=== PATIENT | male | born 1965 | race Hispanic/Latino ===

== ENCOUNTER 2017-06-25 10:40 | Emergency (ER) | payer OTHER ==
[~2017-06-25 10:40] MED LIST: AMLO5TAB2 PO; ASPI-1197 PO; BACL10TA PO; CYAN10009 PO; DAPA10TA PO; GLIM4TAB3 PO; HYDR-4060 PO; ISOS30TA6 PO; LISI2.5T2 PO; LORA10TA7 PO; LORA1TAB3 PO; MELA3TAB PO; METF500T6 PO; METO25TA6 PO; METO5TAB2 PO; NITR0.4T50 SL; PANT40TA PO; PRAV80TA21 PO
[2017-06-25] MEDS ORDERED: ONDANSETRON HCL 4 MG/2 ML VIAL ONE (11:03)
[2017-06-25] MEDS ORDERED: ORPHENADRINE CITRATE 30 MG/ML ML ONE (11:03)
[2017-06-25] MEDS ORDERED: ASPIRIN 325 MG TABLET ONE (11:30)
[2017-06-25 11:50] LABS: BASOPHILS % (AUTO) 0.7 % (0.0-5.0); EOSINOPHILS % (AUTO) 1.3 % (0.0-8.0); HEMATOCRIT 38.7 % (42-54); LYMPHOCYTES % (AUTO) 24.3 % (21.0-51.0); MEAN CORPUSCULAR HEMOGLOBIN 29.9 pg (27.0-33.0); MEAN CORPUSCULAR HGB CONC 34.3 g/dL (32.0-36.0); MEAN CORPUSCULAR VOLUME 87.3 fL (79-99); MONOCYTES % (AUTO) 4.7 % (3.0-13.0); NUCLEATED RED BLOOD CELLS 0.1 % (0.0-0.19); PLATELET COUNT (AUTO) 217 K/uL (130-400); RED BLOOD CELL COUNT(AUTO) 4.43 MIL/uL (4.50-6.20); RED CELL DISTRIBUTION WIDTH 13.1 % (11.0-15.5); WHITE BLOOD COUNT (AUTO) 6.2 K/uL (4.8-10.8)
[2017-06-25 12:02] LABS: CREATININE 0.9 mg/dL (0.5-1.5); POTASSIUM 4.2 mmol/L (3.5-5.1)
[2017-06-25 12:07] LABS: ALBUMIN 3.4 g/dL (3.5-5.0); BILIRUBIN,TOTAL 0.3 mg/dL (0.2-1.0); TOTAL PROTEIN, SERUM 6.7 g/dL (6.0-8.3)
[2017-06-25 12:41] LABS: PARTIAL THROMBOPLASTIN TIME 23.9 SEC (26.3-35.5); PROTHROMBIN TIME 10.5 SEC (9.6-11.6)
== END 2017-06-25 15:19 | disposition home or self-care (01) ==
LOC: EDH 10:40
DX: R07.89 Other chest pain (principal); M43.6 Torticollis; I10 Essential (primary) hypertension; E11.9 Type 2 diabetes mellitus without complications; Z79.4 Long term (current) use of insulin; Z95.0 Presence of cardiac pacemaker; Z98.890 Other specified postprocedural states
CPT/HCPCS: 36415; 71046; 80053; 84484 ×2; 85025; 85610; 85730; 93005 ×2; 96374; 96375; 99285; J2360; J2405

== ENCOUNTER 2017-10-10 21:02 | Emergency (ER) | payer OTHER ==
[2017-10-10] MEDS ORDERED: LIDOCAINE HCL 2% VISCOUS 15 ML UDCUP ONE (21:33)
[2017-10-10] MEDS ORDERED: ONDANSETRON ODT 4 MG TAB ONE (21:34)
[2017-10-10] MEDS ORDERED: SODIUM CHLORIDE 0.9% 1000ML 1,000 ML IV ONE (21:34)
[2017-10-10] MEDS ORDERED: MAG HYDROX/AL HYDROX/SIMETH ES 30 ML SUSP UDCUP ONE (21:34)
[2017-10-10] MEDS ORDERED: HYDROCODONE/ACETAMINOPHEN 7.5/325 MG 15 ML UDCUP ONE (21:34)
[2017-10-10 21:36] LABS: BASOPHILS % (AUTO) 0.2 % (0.0-5.0); EOSINOPHILS % (AUTO) 0.3 % (0.0-8.0); HEMATOCRIT 45.8 % (42-54); LYMPHOCYTES % (AUTO) 11.4 % (21.0-51.0); MEAN CORPUSCULAR HEMOGLOBIN 29.4 pg (27.0-33.0); MEAN CORPUSCULAR HGB CONC 33.8 g/dL (32.0-36.0); MEAN CORPUSCULAR VOLUME 86.9 fL (79-99); MONOCYTES % (AUTO) 8.4 % (3.0-13.0); NEUTROPHILS % (AUTO) 79.7 % (40.0-77.0); PLATELET COUNT (AUTO) 269 K/uL (130-400); RED BLOOD CELL COUNT(AUTO) 5.27 MIL/uL (4.50-6.20); RED CELL DISTRIBUTION WIDTH 12.9 % (11.0-15.5); WHITE BLOOD COUNT (AUTO) 11.4 K/uL (4.8-10.8)
[2017-10-10 21:49] LABS: POTASSIUM 3.7 mmol/L (3.5-5.1)
[2017-10-10 21:50] LABS: INR 0.96 (0.85-1.15); PARTIAL THROMBOPLASTIN TIME 26.5 SEC (26.3-35.5); PROTHROMBIN TIME 10.1 SEC (9.6-11.6)
[2017-10-10 21:53] LABS: ALBUMIN 3.8 g/dL (3.5-5.0); BILIRUBIN,TOTAL 0.4 mg/dL (0.2-1.0); TOTAL PROTEIN, SERUM 8.1 g/dL (6.0-8.3)
[2017-10-10] MEDS ORDERED: METRONIDAZOLE 500 MG TABLET ONE (22:03)
[2017-10-10] MEDS ORDERED: CEFTRIAXONE SODIUM 1 GM ONE (22:03)
== END 2017-10-10 23:24 | disposition home or self-care (01) ==
LOC: EDH 21:02
DX: K52.9 Noninfective gastroenteritis and colitis, unspecified (principal); K29.70 Gastritis, unspecified, without bleeding; E11.9 Type 2 diabetes mellitus without complications; I10 Essential (primary) hypertension; E78.5 Hyperlipidemia, unspecified; E07.9 Disorder of thyroid, unspecified; I25.810 Atherosclerosis of coronary artery bypass graft(s) without angina pectoris; Z95.1 Presence of aortocoronary bypass graft; Z79.4 Long term (current) use of insulin
CPT/HCPCS: 36415; 80053; 83605; 83690; 84484; 85025; 85610; 85730; 93005; 96361; 96374; 99285; J0696; J7030

== ENCOUNTER 2018-04-25 17:53 | Emergency (ER) | payer OTHER ==
[~2018-04-25 17:53] MED LIST changes: -AMLO5TAB2 PO; +AMLO5TAB7 PO; +METF-444 PO; -METF500T6 PO
[2018-04-25 18:44] LABS: BASOPHILS % (AUTO) 0.4 % (0.0-5.0); EOSINOPHILS % (AUTO) 0.9 % (0.0-8.0); HEMATOCRIT 44.3 % (42-54); LYMPHOCYTES % (AUTO) 31.1 % (21.0-51.0); MEAN CORPUSCULAR HEMOGLOBIN 29.7 pg (27.0-33.0); MEAN CORPUSCULAR HGB CONC 33.9 g/dL (32.0-36.0); MEAN CORPUSCULAR VOLUME 87.7 fL (79-99); MONOCYTES % (AUTO) 6.4 % (3.0-13.0); NEUTROPHILS % (AUTO) 61.2 % (40.0-77.0); NUCLEATED RED BLOOD CELLS 0.1 % (0.0-0.19); PLATELET COUNT (AUTO) 272 K/uL (130-400); RED BLOOD CELL COUNT(AUTO) 5.05 MIL/uL (4.50-6.20); WHITE BLOOD COUNT (AUTO) 7.3 K/uL (4.8-10.8)
[2018-04-25 18:59] LABS: POTASSIUM 4.1 mmol/L (3.5-5.1)
[2018-04-25 19:07] LABS: ALBUMIN 3.5 g/dL (3.5-5.0); BILIRUBIN,TOTAL 0.3 mg/dL (0.2-1.0); TOTAL PROTEIN, SERUM 6.9 g/dL (6.0-8.3)
[2018-04-25] MEDS ORDERED: PROMETHAZINE HCL 25 MG/ML 1ML AMPULE IM ONE (19:10)
[2018-04-25] MEDS ORDERED: DiphenhydrAMINE HCL 50 MG/ML VIAL ONE (19:10)
[2018-04-25] MEDS ORDERED: SODIUM CHLORIDE 0.9% 1000ML 1,000 ML IV ONE (19:11)
[2018-04-25] MEDS ORDERED: LABETALOL HCL 5 MG/ML 20ML VIAL IV ONE (20:11)
[2018-04-25 20:30] LABS: APPEARANCE,URINE Clear (CLEAR); BILIRUBIN,URINE Negative (NEGATIVE); COLOR,URINE Yellow (YELLOW); GLUCOSE, URINE (UA) >=1000 mg/dL (NEGATIVE); KETONES,URINE Negative (NEGATIVE); LEUKOCYTE ESTERASE ,URINE Negative (NEGATIVE); NITRATE,URINE Negative (NEGATIVE); OCCULT BLOOD,URINE Negative (NEGATIVE); PROTEIN,URINE Negative (NEGATIVE); UROBILINOGEN,URINE 0.2 mg/dL (0.2-1.0)
[2018-04-25] MEDS ORDERED: IOHEXOL-350 75 ML VIAL IV ONE (20:35)
[2018-04-25 21:03] LABS: RBC,URINE 0-1 /HPF (0-1); SQUAMOUS EPITHELIAL CELL,UR Rare /HPF (0-2); WBC,URINE 0-1 /HPF (0-1)
[2018-04-25 21:04] LABS: BACTERIA,URINE Rare /HPF (None Seen)
== END 2018-04-26 00:30 | disposition home or self-care (01) ==
LOC: EDH 17:53
DX: K29.70 Gastritis, unspecified, without bleeding (principal); E11.9 Type 2 diabetes mellitus without complications; E07.9 Disorder of thyroid, unspecified; I10 Essential (primary) hypertension; I25.10 Atherosclerotic heart disease of native coronary artery without angina pectoris; Z79.4 Long term (current) use of insulin; Z95.1 Presence of aortocoronary bypass graft
CPT/HCPCS: 36415; 74177; 76705; 80053; 81001; 82150; 83690; 84484; 85025; 93005; 96365; 96366; 96375; 99285; J1200; J2550; J3490; J7030; Q9967

== ENCOUNTER 2019-03-28 11:24 | Observation (INO) | payer OTHER ==
[~2019-03-28] VITALS: Ht 170.2 cm; Wt 95.3 kg
[~2019-03-28 11:24] MED LIST changes: -AMLO5TAB7 PO; +AMLO5TAB9 PO; +CYAN-52 PO; -CYAN10009 PO; -GLIM4TAB3 PO; +GLIM4TAB5 PO; -MELA3TAB PO; +MELA3TAB66 PO
[2019-03-28] MEDS ORDERED: ASPIRIN 325MG EC TAB 325 MG TABLET.DR PO ONE (11:33)
[2019-03-28 11:35] LABS: BASOPHILS % (AUTO) 0.7 % (0.0-5.0); EOSINOPHILS % (AUTO) 1.7 % (0.0-8.0); HEMATOCRIT 44.6 % (42-54); LYMPHOCYTES % (AUTO) 30.8 % (21.0-51.0); MEAN CORPUSCULAR HEMOGLOBIN 29.5 pg (27.0-33.0); MEAN CORPUSCULAR HGB CONC 33.2 g/dL (32.0-36.0); MEAN CORPUSCULAR VOLUME 89.1 fL (79-99); NEUTROPHILS % (AUTO) 59.8 % (40.0-77.0); PLATELET COUNT (AUTO) 251 K/uL (130-400); RED BLOOD CELL COUNT(AUTO) 5.01 MIL/uL (4.50-6.20); RED CELL DISTRIBUTION WIDTH 13.2 % (11.0-15.5); WHITE BLOOD COUNT (AUTO) 6.4 K/uL (4.8-10.8)
[2019-03-28] MEDS ORDERED: NITROGLYCERIN 1GM/1 INCH PACKET TD ONE (11:43)
[2019-03-28 11:44] LABS: POTASSIUM 4.1 mmol/L (3.5-5.1)
[2019-03-28 11:49] LABS: ALBUMIN 3.7 g/dL (3.5-5.0); BILIRUBIN,TOTAL 0.3 mg/dL (0.2-1.0); TOTAL PROTEIN, SERUM 7.3 g/dL (6.0-8.3)
[2019-03-28 11:58] LABS: INR 0.96 (0.85-1.15); PARTIAL THROMBOPLASTIN TIME 25.1 SEC (26.3-35.5); PROTHROMBIN TIME 10.1 SEC (9.6-11.6)
[2019-03-28] MEDS ORDERED: SODIUM CHLORIDE 0.9% 500ML 500 ML IV SCH (17:25)
[2019-03-28] MEDS ORDERED: TICAGRELOR 90 MG TABLET PO SCH (18:45)
[2019-03-28] MEDS ORDERED: TICAGRELOR 90 MG TABLET ONE (20:21)
[2019-03-28 20:24] LABS: CREATINE KINASE, TOTAL 154 U/L (21-232); MYOGLOBIN 32 ng/mL (10-92); TROPONIN I < 0.04 ng/mL (0.00-0.06)
[2019-03-28] MEDS ORDERED: METOPROLOL TARTRATE 25 MG TAB ONE (20:25)
[2019-03-28] MEDS: METOPROLOL TARTRATE 25 MG TAB PO SCH (21:00)
[2019-03-28] MEDS ORDERED: SODIUM CHLORIDE 0.9% 1000ML 1,000 ML IV ONE (21:24)
[2019-03-28] MEDS ORDERED: SODIUM CHLORIDE 0.9% 500ML 500 ML IV ONE (21:25)
[2019-03-29] VITALS (11 sets, daily range): BP systolic 78–164; BP diastolic 64–123
[2019-03-29] MEDS: ISOSORBIDE MONO 30MG TAB SR PO SCH (09:00)
[2019-03-29] MEDS: ASPIRIN 81MG TAB.CHEW PO SCH (09:00)
[2019-03-29] MEDS: METOPROLOL TARTRATE 25 MG TAB PO SCH (09:00)
[2019-03-29] MEDS ORDERED: METOPROLOL TARTRATE 25 MG TAB ONE (11:03)
[2019-03-29 13:03] LABS: HEMATOCRIT 45.6 % (42-54); MEAN CORPUSCULAR HEMOGLOBIN 29.4 pg (27.0-33.0); MEAN CORPUSCULAR HGB CONC 33.2 g/dL (32.0-36.0); MEAN CORPUSCULAR VOLUME 88.7 fL (79-99); PLATELET COUNT (AUTO) 234 K/uL (130-400); RED BLOOD CELL COUNT(AUTO) 5.14 MIL/uL (4.50-6.20); RED CELL DISTRIBUTION WIDTH 12.9 % (11.0-15.5); WHITE BLOOD COUNT (AUTO) 5.6 K/uL (4.8-10.8)
[2019-03-29 13:15] LABS: CREATININE 0.9 mg/dL (0.5-1.5); POTASSIUM 4.3 mmol/L (3.5-5.1)
[2019-03-29 13:17] LABS: INR 0.98 (0.85-1.15); PROTHROMBIN TIME 10.3 SEC (9.6-11.6)
--- NOTE | 2019-03-29 14:02 | NUR ---
DCP: HOME Sw met with pt who lives with his Vira [place] [phone]. Pt reports he is independent of all ADLs, no DME or in home care services. PCP is Elvis Hein and he uses [facility]. Pt denies dc needs, plan is home at la Addendum: 03/29/19 at 1404 by SADIA DEL CASTILLO SS Amended: Links added.
[2019-03-29] MEDS ORDERED: MAGNESIUM 2GM PREMIX 50ML 50 ML IV PRN (17:00)
[2019-03-29] MEDS ORDERED: POTASSIUM CHLORIDE 10% ELIXIR 20 MEQ/15 ML UDCUP PO PRN (17:00)
[2019-03-29] MEDS ORDERED: POTASSIUM CHLORIDE 20MEQ/100ML 100 ML IV PRN (17:00)
[2019-03-29] MEDS ORDERED: GLUCAGON 1MG KIT 1 MG ML IM PRN (17:00)
[2019-03-29] MEDS ORDERED: DEXTROSE 50%-WATER 50 ML DISP.SYRIN IV PRN (17:00)
[2019-03-29] MEDS ORDERED: IPRATROPIUM 0.5 MG/2.5 ML INH IH PRN (17:00)
[2019-03-29] MEDS ORDERED: POTASSIUM CHLORIDE 20 MEQ ERTAB PO PRN (17:00)
[2019-03-29] MEDS ORDERED: IOHEXOL 350 MG/ML 100ML INFUS..BTL IV ONE (18:20)
[2019-03-29] MEDS ORDERED: LIDOCAINE HCL 2% 20ML ONE (18:20)
[2019-03-29] MEDS ORDERED: HEPARIN SODIUM 1000UNIT/ML 10ML VIAL ONE (18:20)
[2019-03-29] MEDS ORDERED: NITROGLYCERIN 5 MG/ML 10 ML VIAL IV ONE (18:20)
[2019-03-29] MEDS ORDERED: IOHEXOL-350 50ML VIAL IV ONE (18:20)
[2019-03-29] MEDS ORDERED: MIDAZOLAM HCL 1 MG/ML 2ML VIAL ONE (18:30)
[2019-03-29] MEDS ORDERED: FENTANYL CITRATE PF 50 MCG/1 ML 2ML VIAL ONE (18:31)
[2019-03-29] MEDS ORDERED: HYDRALAZINE HCL 20 MG/ML VIAL ONE (18:39)
[2019-03-29] MEDS ORDERED: TICAGRELOR 90 MG TABLET ONE (18:47)
[2019-03-29] MEDS ORDERED: ASPIRIN 325MG EC TAB 325 MG TABLET.DR PO ONE (19:36)
--- NOTE | 2019-03-29 20:00 | NUR ---
ARRIVED ON UNIT PATIENT ON 2L OF SATS 99%, ON BEDREST X3H PER ORDERS. DENIES CHEST PAIN OR SOB. L GROIN SOFT, NO ACTIVE BLEEDING,NO HEMATOMA. BILATERAL PEDAL PULSES PALPABLE. BLE COOL TO TOUCH. AT BEDSIDE. WILL CONTINUE TO MONITOR
[2019-03-29] MEDS: TICAGRELOR 90 MG TABLET PO SCH (21:00)
[2019-03-29] MEDS: INSULIN HUMULIN R 100 UNIT/ML 3ML SQ SCH (21:00)
[2019-03-29] MEDS: RANOLAZINE 500 MG TAB.SR.12H PO SCH (21:13)
[2019-03-29] MEDS: FAMOTIDINE 20MG TAB 20 MG TAB PO SCH (21:13)
--- NOTE | 2019-03-29 22:45 | NUR ---
BEDREST DONE SAT PATIENT UP TO EAT. GROIN SOFT, NO BLEEDING, DRESSING CDI. PEDAL PULSES PALPABLE.
--- NOTE | 2019-03-29 23:15 | NUR ---
PATIENT AMBULATED WITH STEADY GATE, L GROIN SOFT, NO BLEEDING, DRESSING CDI.
[2019-03-29] MEDS ORDERED: LEVO50TA11 PO (23:24)
[2019-03-29] MEDS ORDERED: PRAZ1CAP5 PO (23:24)
[2019-03-29] MEDS ORDERED: MONT10TA24 PO (23:24)
[2019-03-29] MEDS ORDERED: TAMS-1 PO (23:24)
[2019-03-29] MEDS ORDERED: MAGN400T53 PO (23:24)
[2019-03-29] MEDS ORDERED: TRAZ-185 PO (23:24)
[2019-03-29] MEDS ORDERED: AEC81 PO (23:28)
[2019-03-30 04:03] LABS: HEMATOCRIT 43.2 % (42-54); MEAN CORPUSCULAR HEMOGLOBIN 29.5 pg (27.0-33.0); MEAN CORPUSCULAR HGB CONC 33.9 g/dL (32.0-36.0); MEAN CORPUSCULAR VOLUME 86.8 fL (79-99); PLATELET COUNT (AUTO) 268 K/uL (130-400); RED BLOOD CELL COUNT(AUTO) 4.97 MIL/uL (4.50-6.20); WHITE BLOOD COUNT (AUTO) 7.7 K/uL (4.8-10.8)
[2019-03-30 04:30] LABS: CARBON DIOXIDE 28 mmol/L (21-32); CHLORIDE 99 mmol/L (101-111); CHOLESTEROL 213 mg/dL (<200); CREATINE KINASE, TOTAL 96 U/L (21-232); CREATININE 1.1 mg/dL (0.5-1.5); GLOMERULAR FILTR. RATE CALC 74 mL/min (>60); GLUCOSE,RANDOM 215 mg/dL (70-105); HDL CHOLESTEROL 30 mg/dL (29-71); LDL DIRECT 163 mg/dL (0-99); MYOGLOBIN 52 ng/mL (10-92); POTASSIUM 3.8 mmol/L (3.5-5.1); SODIUM SERUM 133 mmol/L (136-145); THYROID STIMULATING HORMONE 3.28 uIU/mL (0.36-3.74); TRIGLYCERIDES 222 mg/dL (30-200); TROPONIN I < 0.04 ng/mL (0.00-0.06); UREA NITROGEN, BLOOD 12 mg/dL (7-18)
[2019-03-30 04:33] LABS: HEMOGLOBIN A1C 7.9 % (4.0-6.0)
[2019-03-30 04:43] VITALS: BP 127/88
[2019-03-30] MEDS: INSULIN HUMULIN R 100 UNIT/ML 3ML SQ SCH (06:16)
[2019-03-30 07:41] VITALS: BP 152/69
[2019-03-30] MEDS: RANOLAZINE 500 MG TAB.SR.12H PO SCH ×2 (09:00→09:58)
[2019-03-30] MEDS: ISOSORBIDE MONO 30MG TAB SR PO SCH (09:00)
[2019-03-30] MEDS ORDERED: PNEUMOCOCCAL VACCINE POLYVALENT 0.5 ML/VIAL [PPV] IM SCH (09:00)
[2019-03-30] MEDS: METOPROLOL TARTRATE 25 MG TAB PO SCH (09:58)
[2019-03-30] MEDS: TICAGRELOR 90 MG TABLET PO SCH (09:58)
[2019-03-30] MEDS: FAMOTIDINE 20MG TAB 20 MG TAB PO SCH (09:58)
[2019-03-30] MEDS: ASPIRIN 81MG TAB.CHEW PO SCH (09:58)
[2019-03-30] MEDS ORDERED: TICA90TA PO (10:05)
[2019-03-30] MEDS ORDERED: ISOS30TA6 PO (21:26)
[2019-03-30] MEDS ORDERED: METO50TA18 PO (21:26)
== END 2019-03-30 11:53 | disposition home or self-care (01) ==
LOC: EDH 11:24 → EDHIP 12:30 → 2AH 03-29 17:54
PROVIDERS: ADMIT Internal Medicine Critical Care Medicine; ATTEND Internal Medicine Critical Care Medicine
DX: I25.110 Atherosclerotic heart disease of native coronary artery with unstable angina pectoris (principal); E03.9 Hypothyroidism, unspecified; E11.9 Type 2 diabetes mellitus without complications; E78.2 Mixed hyperlipidemia; I10 Essential (primary) hypertension; J44.9 Chronic obstructive pulmonary disease, unspecified; N40.0 Benign prostatic hyperplasia without lower urinary tract symptoms; E66.9 Obesity, unspecified; F41.9 Anxiety disorder, unspecified; Z79.02 Long term (current) use of antithrombotics/antiplatelets; Z79.82 Long term (current) use of aspirin; Z79.84 Long term (current) use of oral hypoglycemic drugs; Z79.890 Hormone replacement therapy; Z79.899 Other long term (current) drug therapy; Z95.1 Presence of aortocoronary bypass graft; Z98.61 Coronary angioplasty status; Z82.49 Family history of ischemic heart disease and other diseases of the circulatory system; Z83.3 Family history of diabetes mellitus; Z79.01 Long term (current) use of anticoagulants
CPT/HCPCS: 36415 ×3; 71045; 80048 ×2; 80053; 80061 ×2; 82550 ×4; 82948 ×7; 83036; 83690; 83735; 83874 ×2; 84443; 84484 ×4; 85025; 85027 ×2; 85610 ×2; 85730; 93005 ×4; 93459; 94660 ×2; 94664; 96365; 96366; 99284; C1725; C1760; C1769; C1874; C1887; C1894 ×2; C9600; G0378 ×39; J0360; J1644 ×2; J2250; J3010; J3475; J3490 ×2; J7030; J7040; Q9965 ×2; Q9967 ×2; 99156; 99157

== ENCOUNTER 2019-03-30 15:37 | Observation (INO) | payer OTHER ==
[~2019-03-30] VITALS: Ht 170.2 cm; Wt 95.3 kg
[~2019-03-30 15:37] MED LIST changes: +AEC81 PO; -AMLO5TAB9 PO; -ASPI-1197 PO; -CYAN-52 PO; -DAPA10TA PO; -GLIM4TAB5 PO; +LEVO50TA11 PO; -LORA10TA7 PO; +MAGN400T53 PO; +MONT10TA24 PO; +PRAZ1CAP5 PO; +TAMS-1 PO; +TICA90TA PO; +TRAZ-185 PO
[2019-03-30 15:51] LABS: BASOPHILS % (AUTO) 0.4 % (0.0-5.0); EOSINOPHILS % (AUTO) 0.4 % (0.0-8.0); HEMATOCRIT 47.7 % (42-54); LYMPHOCYTES % (AUTO) 33.4 % (21.0-51.0); MEAN CORPUSCULAR HEMOGLOBIN 29.5 pg (27.0-33.0); MEAN CORPUSCULAR HGB CONC 33.6 g/dL (32.0-36.0); MEAN CORPUSCULAR VOLUME 87.9 fL (79-99); MONOCYTES % (AUTO) 6.8 % (3.0-13.0); PLATELET COUNT (AUTO) 250 K/uL (130-400); RED BLOOD CELL COUNT(AUTO) 5.43 MIL/uL (4.50-6.20); RED CELL DISTRIBUTION WIDTH 12.7 % (11.0-15.5); WHITE BLOOD COUNT (AUTO) 6.5 K/uL (4.8-10.8)
[2019-03-30 15:58] LABS: CREATININE 1.2 mg/dL (0.5-1.5); POTASSIUM 3.8 mmol/L (3.5-5.1)
[2019-03-30 16:04] LABS: ALBUMIN 3.9 g/dL (3.5-5.0); BILIRUBIN,TOTAL 0.5 mg/dL (0.2-1.0); TOTAL PROTEIN, SERUM 7.8 g/dL (6.0-8.3)
[2019-03-30 16:07] LABS: INR 1.02 (0.85-1.15); PARTIAL THROMBOPLASTIN TIME 25.9 SEC (26.3-35.5); PROTHROMBIN TIME 10.7 SEC (9.6-11.6)
[2019-03-30] MEDS ORDERED: ONDANSETRON HCL 4 MG/2 ML VIAL ONE (18:07)
[2019-03-30] MEDS ORDERED: ONDANSETRON HCL 4 MG/2 ML VIAL IVP PRN (18:30)
[2019-03-30] MEDS ORDERED: ACETAMINOPHEN 325 MG TAB PO PRN (18:30)
[2019-03-30 20:11] VITALS: BP 168/94
[2019-03-30] MEDS ORDERED: METO50TA18 PO (21:26)
[2019-03-30] MEDS ORDERED: ISOS30TA6 PO (21:26)
[2019-03-30] MEDS ORDERED: TRAZODONE HCL 50 MG TAB PO PRN (21:30)
[2019-03-30] MEDS ORDERED: BACLOFEN 10 MG TABLET PO PRN (21:30)
[2019-03-31] VITALS (8 sets, daily range): BP systolic 128–158; BP diastolic 58–89
[2019-03-31] MEDS: LEVOTHYROXINE 50 MCG TABLET PO SCH (05:38)
[2019-03-31] MEDS: ASPIRIN 81MG TAB.CHEW PO SCH (08:48)
[2019-03-31] MEDS: TICAGRELOR 90 MG TABLET PO SCH ×2 (08:49→20:01)
[2019-03-31] MEDS: METOPROLOL TARTRATE 50 MG TAB PO SCH ×2 (08:49→20:01)
[2019-03-31] MEDS: TAMSULOSIN HCL 0.4 MG CAP.ER.24H PO SCH (08:49)
[2019-03-31] MEDS: MONTELUKAST SODIUM 10 MG TAB PO SCH (08:49)
[2019-03-31] MEDS ORDERED: ISOSORBIDE MONO 30MG TAB SR PO SCH (09:00)
[2019-03-31] MEDS ORDERED: LISINOPRIL 5 MG TABLET PO SCH (09:00)
[2019-03-31] MEDS ORDERED: DEXTROSE 50%-WATER 50 ML DISP.SYRIN IV PRN (13:30)
[2019-03-31] MEDS ORDERED: GLUCAGON 1MG KIT 1 MG ML IM PRN (13:30)
--- NOTE | 2019-03-31 15:05 | NUR ---
INITIAL: Met with pt and spouse this afternoon to discuss dcp. Pt mentions that he lives w his spouse/dtr and grandchildren. He mentions that he is independent w ambulation and ADLs. He was still driving prior to admission. He owns a cane and cpap. Per spouse/pt he was having a difficult time purchasing Brilinta dt cost. Provided him w a coupon. Pt mentions that he feels safe and comfortable to return home at vt. CM to continue to follow and wait for MD recommendations. Addendum: 03/31/19 at 1507 by DACIA RIVAS Amended: Links added.
--- NOTE | 2019-03-31 15:55 | NUR ---
SPOKE TO DR. RODRIGO MOYER REGARDING CONSULT. PER DR. MOYER, HE NEVER SPOKE TO ANYONE REGARDING THE CONSULT. REMINDED DR. MOYER, ER PHYSICIAN SPOKE TO HIM REGARDING THE CONSULT. DR. MOYER STATED IS AWARE OF THE PATIENT BECAUSE HE DISCHARGED HIM YESTERDAY BUT STATED HE WAS NOT CONSULTED JUST NOTIFIED THAT THE PATIENT HAD RETURNED. PER DR. MOYER, HE WILL NOT SEE THE PATIENT TODAY DUE TO OTHER PROCEDURES THAT HE NEEDS TO ATTEND TOO. IF PATIENT HAS NOT HAD ANY DYSRHYTHMIAS THEN THE PRIMARY PHYSICIAN WOULD NEED TO DETERMINE TO DISCHARGE OR KEEP THE PATIENT.
--- NOTE | 2019-03-31 16:05 | NUR ---
NOTIFIED SARAN ORTA REGARDING DR. MOYER WILL NOT SEE THE PATIENT. PER FLORIAN, WILL NOTIFY DR. PINEDA. NO FURTHER ORDERS AT THIS TIME.
[2019-03-31] MEDS: INSULIN HUMULIN R 100 UNIT/ML 3ML SQ SCH ×2 (17:41→20:50)
[2019-03-31] MEDS: SIMVASTATIN 10 MG TABLET PO SCH (20:01)
[2019-04-01] VITALS (11 sets, daily range): BP systolic 100–159; BP diastolic 49–100
[2019-04-01 04:57] LABS: HEMATOCRIT 43.5 % (42-54); MEAN CORPUSCULAR HEMOGLOBIN 29.4 pg (27.0-33.0); MEAN CORPUSCULAR HGB CONC 33.5 g/dL (32.0-36.0); MEAN CORPUSCULAR VOLUME 87.9 fL (79-99); NUCLEATED RED BLOOD CELLS 0.1 % (0.0-0.19); PLATELET COUNT (AUTO) 250 K/uL (130-400); RED BLOOD CELL COUNT(AUTO) 4.95 MIL/uL (4.50-6.20); RED CELL DISTRIBUTION WIDTH 12.7 % (11.0-15.5); WHITE BLOOD COUNT (AUTO) 7.9 K/uL (4.8-10.8)
[2019-04-01 05:05] LABS: CREATININE 1.1 mg/dL (0.5-1.5); POTASSIUM 3.6 mmol/L (3.5-5.1)
[2019-04-01] MEDS: INSULIN HUMULIN R 100 UNIT/ML 3ML SQ SCH ×4 (05:40→21:08)
[2019-04-01] MEDS: LEVOTHYROXINE 50 MCG TABLET PO SCH (05:52)
[2019-04-01] MEDS: MONTELUKAST SODIUM 10 MG TAB PO SCH (12:05)
[2019-04-01] MEDS: ASPIRIN 81MG TAB.CHEW PO SCH (12:05)
[2019-04-01] MEDS: TICAGRELOR 90 MG TABLET PO SCH ×2 (12:05→21:02)
[2019-04-01] MEDS: TAMSULOSIN HCL 0.4 MG CAP.ER.24H PO SCH (12:06)
[2019-04-01] MEDS: METOPROLOL TARTRATE 50 MG TAB PO SCH ×2 (12:06→21:02)
--- NOTE | 2019-04-01 13:01 | NUR ---
PLAN CASE DISCUSSED WITH DR. Ilana FREGOSO AND CLEMENT RODRIGUEZ, [place]. IF PATIENT DISCHARGING HOME TODAY, OKAY TO ORDER CARDIAC WORK UP AN OUTPATIENT. PER CLEMENT, WILL CLEAR PATIENT FOR DC IF PATIENT ABLE TO AMBULATE WITHOUT NEED FOR O2. ORDERS ENTERED AND CASE DISCUSSED WITH PATRICE VERMA. CD
[2019-04-01] MEDS ORDERED: LISINOPRIL 5 MG TABLET PO SCH (21:00)
[2019-04-01] MEDS: SIMVASTATIN 10 MG TABLET PO SCH (21:02)
[2019-04-02] VITALS (7 sets, daily range): BP systolic 104–151; BP diastolic 64–76
[2019-04-02 04:13] LABS: CREATININE 1.1 mg/dL (0.5-1.5); MAGNESIUM 1.8 mg/dL (1.80-2.40)
[2019-04-02] MEDS: INSULIN HUMULIN R 100 UNIT/ML 3ML SQ SCH ×3 (07:27→17:18)
[2019-04-02] MEDS: LEVOTHYROXINE 50 MCG TABLET PO SCH (07:35)
--- NOTE | 2019-04-02 07:48 | NUR ---
OFF UNIT FOR STRESS TEST
[2019-04-02] MEDS ORDERED: REGADENOSON 0.4 MG/5 ML PF SYG IVP SCH (08:15)
--- NOTE | 2019-04-02 09:18 | NUR ---
BACK IN ROOM FROM STRESS TEST
--- NOTE | 2019-04-02 09:20 | NUR ---
Has bipap uses at night Addendum: 04/02/19 at 1534 by AMY MYERS RN RN Amended: Links added.
[2019-04-02] MEDS: TAMSULOSIN HCL 0.4 MG CAP.ER.24H PO SCH (09:24)
[2019-04-02] MEDS: ASPIRIN 81MG TAB.CHEW PO SCH (09:24)
[2019-04-02] MEDS: METOPROLOL TARTRATE 50 MG TAB PO SCH (09:24)
[2019-04-02] MEDS: MONTELUKAST SODIUM 10 MG TAB PO SCH (09:24)
[2019-04-02] MEDS: TICAGRELOR 90 MG TABLET PO SCH (09:25)
--- NOTE | 2019-04-02 11:00 | NUR ---
CLEMENT RODRIGUEZ ROUNDED ON PATIENT ORDERS RECIEVED FOR CT ANGIO CHEST PE AND US VEINOUS DOPPLER LOWER EXTREMITIES . ORDERS PLACED.
--- NOTE | 2019-04-02 12:30 | NUR ---
VEINOUS DOPPLER COMPLETED RESULTS NORMAL VEINOUS FLOW
[2019-04-02] MEDS ORDERED: IOHEXOL 350 MG/ML 100ML INFUS..BTL IV ONE (14:53)
--- NOTE | 2019-04-02 15:20 | NUR ---
CONSENT SIGNED FOR CT SCAN PATIENT TAKING VIA WHEELCHAIR FOR CT SCAN.
--- NOTE | 2019-04-02 15:26 | NUR ---
Patient stutters and has delays in completing words Addendum: 04/02/19 at 1534 by AMY MYERS RN RN Amended: Links added.
--- NOTE | 2019-04-02 15:39 | NUR ---
PATIENT BACK IN ROOM FROM CT SCAN
--- NOTE | 2019-04-02 17:50 | NUR ---
CALLED CLEMENT RODRIGUEZ WITH RESULTS OF TERA SCAN , CHEST CT AND VEINOUS DOPPLER , SHE SAID SHE WILL RECONCILE THE MEDICATIONS FOR DISCHARGE SOON SHE CAN GET TO A COMPUTER. PATIENT INFORMED OF PENDING DISCHARGE.
[2019-04-02] MEDS ORDERED: METO50 PO (18:53)
[2019-04-02] MEDS ORDERED: LISI-617 PO (18:53)
--- NOTE | 2019-04-02 19:17 | NUR ---
Patient and given discharge instructions and verbalized understanding , monitor unit call and telemetry unit d/c , iv removed with catheter intact and pressure held till bleeding stopped and than site dressed with pressure dressing. reviewed follow-up appointment that patient will call in morning to schedule, reviewed change in medications and medications to continue , no questions or concerns at this time , patient taking via wheelchair to lobby where is waiting to take him home.
== END 2019-04-02 19:10 | disposition home or self-care (01) ==
LOC: EDH 15:37 → EDHIP 17:37 → 3BH 20:11 → 4DH 04-01 19:11
PROVIDERS: ADMIT Internal Medicine Critical Care Medicine; ATTEND Internal Medicine Critical Care Medicine
DX: R55 Syncope and collapse (principal); R00.2 Palpitations; I25.10 Atherosclerotic heart disease of native coronary artery without angina pectoris; E78.5 Hyperlipidemia, unspecified; I10 Essential (primary) hypertension; E03.9 Hypothyroidism, unspecified; E11.9 Type 2 diabetes mellitus without complications; F41.9 Anxiety disorder, unspecified; R94.31 Abnormal electrocardiogram [ECG] [EKG]; G47.33 Obstructive sleep apnea (adult) (pediatric); E66.9 Obesity, unspecified; J44.9 Chronic obstructive pulmonary disease, unspecified; Z95.1 Presence of aortocoronary bypass graft; N40.0 Benign prostatic hyperplasia without lower urinary tract symptoms; Z99.89 Dependence on other enabling machines and devices; Z79.82 Long term (current) use of aspirin; Z79.890 Hormone replacement therapy; Z79.4 Long term (current) use of insulin; Z79.02 Long term (current) use of antithrombotics/antiplatelets; Z79.899 Other long term (current) drug therapy; Z88.8 Allergy status to other drugs, medicaments and biological substances; Z68.32 Body mass index [BMI] 32.0-32.9, adult
CPT/HCPCS: 36415 ×3; 71045; 71275; 78452; 80048 ×2; 80053; 82948 ×11; 83735 ×2; 84484 ×3; 85025; 85027; 85610; 85730; 93005 ×2; 93017; 93306; 93970; 94760; 96372 ×3; 99284; A9500 ×2; G0378 ×71; J1815 ×6; J2405; J2785; Q9967; 96374

== ENCOUNTER 2020-11-28 16:34 | Observation (INO) | payer OTHER ==
[~2020-11-28] VITALS: Ht 170.2 cm; Wt 85.6 kg
[~2020-11-28 16:34] MED LIST changes: -HYDR-4060 PO; -ISOS30TA6 PO; +ISOS30TA92 PO; +LISI-809 PO; -LISI2.5T2 PO; -LORA1TAB3 PO; -MELA3TAB66 PO; -METO25TA6 PO; +METO50 PO; -METO5TAB2 PO; -MONT10TA24 PO; +MONT10TA32 PO; -NITR0.4T50 SL
[2020-11-28 17:13] VITALS: BP 173/69
[2020-11-28 18:44] LABS: BASOPHILS % (AUTO) 0.7 % (0.0-5.0); EOSINOPHILS % (AUTO) 2.7 % (0.0-8.0); HEMATOCRIT 42.6 % (42-54); LYMPHOCYTES % (AUTO) 27.5 % (21.0-51.0); MEAN CORPUSCULAR HEMOGLOBIN 29.3 pg (27.0-33.0); MEAN CORPUSCULAR HGB CONC 32.6 g/dL (32.0-36.0); MEAN CORPUSCULAR VOLUME 89.9 fL (79-99); MONOCYTES % (AUTO) 6.8 % (3.0-13.0); NEUTROPHILS % (AUTO) 61.9 % (40.0-77.0); PLATELET COUNT (AUTO) 260 K/uL (130-400); RED BLOOD CELL COUNT(AUTO) 4.74 MIL/uL (4.50-6.20); RED CELL DISTRIBUTION WIDTH 12.9 % (11.0-15.5); WHITE BLOOD COUNT (AUTO) 7.5 K/uL (4.8-10.8)
[2020-11-28 18:48] LABS: POTASSIUM 3.8 mmol/L (3.5-5.1)
[2020-11-28] MEDS ORDERED: NITROGLYCERIN 1GM OINT 1 INCH/1GM TD ONE (18:49)
[2020-11-28 18:52] LABS: PROTHROMBIN TIME 10.9 SEC (9.6-11.6)
[2020-11-28 18:53] LABS: ALBUMIN 3.6 g/dL (3.5-5.0); BILIRUBIN,TOTAL 0.3 mg/dL (0.2-1.0); MAGNESIUM 1.5 mg/dL (1.80-2.40); TOTAL PROTEIN, SERUM 7.2 g/dL (6.0-8.3)
[2020-11-28] MEDS ORDERED: MAGNESIUM OXIDE 400 MG TABLET PO SCH (19:00)
[2020-11-28 19:15] LABS: B-TYPE NATRIURETIC PEPTIDE 61 pg/mL (0-100)
[2020-11-28 19:47] LABS: ERYTHROCYTE SEDIMENTATION RATE 5 MM/HR (0-20)
[2020-11-28] MEDS ORDERED: NITROGLYCERIN 0.4 MG SL TAB SL PRN (20:30)
[2020-11-28] MEDS ORDERED: ACETAMINOPHEN 325 MG TAB PO PRN (20:30)
[2020-11-28] MEDS ORDERED: ONDANSETRON 4MG INJ IV PRN (20:30)
[2020-11-28] MEDS ORDERED: 0.9%NACL 1000ML 1,000 ML IV SCH (20:30)
[2020-11-28] MEDS ORDERED: LACTULOSE 20 GM/30 ML UDCUP PO PRN (20:30)
[2020-11-28 20:54] LABS: AMPHET/METH SCREEN,URINE NEGATIVE (NEGATIVE); BARBITURATE SCREEN, URINE NEGATIVE (NEGATIVE); BENZODIAZEPINES SCREEN,URINE NEGATIVE (NEGATIVE); CANNABINOID SCREEN,URINE NEGATIVE (NEGATIVE); COCAINE SCREEN,URINE NEGATIVE (NEGATIVE); OPIATE SCREEN,URINE NEGATIVE (NEGATIVE); PHENCYCLIDINE SCREEN,URINE NEGATIVE (NEGATIVE)
[2020-11-28] MEDS: INSULIN HUMULIN R 100 UNIT/ML 3ML SQ SCH (21:00)
[2020-11-28 21:43] LABS: CHOLESTEROL 179 mg/dL (<200); CREATINE KINASE, TOTAL 126 U/L (21-232); HDL CHOLESTEROL 43 mg/dL (29-71); LDL DIRECT 109 mg/dL (0-99); MYOGLOBIN 27 ng/mL (10-92); TRIGLYCERIDES 177 mg/dL (30-200); TROPONIN I < 0.04 ng/mL (0.00-0.06)
[2020-11-28] MEDS: FAMOTIDINE 20MG TAB PO SCH (22:11)
[2020-11-28 22:52] VITALS: BP 173/79
[2020-11-28 23:56] VITALS: BP 163/71
[2020-11-29] VITALS (16 sets, daily range): BP systolic 130–176; BP diastolic 61–79
[2020-11-29] MEDS ORDERED: SIMV40TA59 PO (00:31)
[2020-11-29] MEDS ORDERED: METO25TA6 PO (00:32)
[2020-11-29] MEDS ORDERED: SERT-439 PO (00:34)
[2020-11-29] MEDS ORDERED: NITR0.4T50 SL (00:37)
[2020-11-29] MEDS ORDERED: BUSP15TA3 PO (00:38)
[2020-11-29] MEDS ORDERED: HYDR-4060 PO (00:43)
[2020-11-29] MEDS ORDERED: HYDRALAZINE 20MG/ML VIAL IV PRN (00:45)
[2020-11-29] MEDS ORDERED: HYDRALAZINE 20MG/ML VIAL ONE (00:47)
[2020-11-29 06:40] LABS: BASOPHILS % (AUTO) 0.5 % (0.0-5.0); EOSINOPHILS % (AUTO) 2.5 % (0.0-8.0); HEMATOCRIT 40.2 % (42-54); MEAN CORPUSCULAR HEMOGLOBIN 29.4 pg (27.0-33.0); MEAN CORPUSCULAR HGB CONC 33.3 g/dL (32.0-36.0); MEAN CORPUSCULAR VOLUME 88.2 fL (79-99); MONOCYTES % (AUTO) 7.1 % (3.0-13.0); NEUTROPHILS % (AUTO) 61.5 % (40.0-77.0); PLATELET COUNT (AUTO) 233 K/uL (130-400); RED BLOOD CELL COUNT(AUTO) 4.56 MIL/uL (4.50-6.20); RED CELL DISTRIBUTION WIDTH 13.1 % (11.0-15.5); WHITE BLOOD COUNT (AUTO) 7.6 K/uL (4.8-10.8)
[2020-11-29 06:49] LABS: HEMOGLOBIN A1C 8.9 % (4.0-6.0)
[2020-11-29 06:54] LABS: % IRON SATURATION 28.9 % (30-44)
[2020-11-29 07:00] LABS: CARBON DIOXIDE 30 mmol/L (21-32); CHLORIDE 105 mmol/L (101-111); CREATINE KINASE, TOTAL 94 U/L (21-232); CREATININE 0.7 mg/dL (0.5-1.5); GLOMERULAR FILTR. RATE CALC 124 mL/min (>60); GLUCOSE,RANDOM 89 mg/dL (70-105); MYOGLOBIN 38 ng/mL (10-92); PHOSPHORUS 3.8 mg/dL (2.5-4.9); POTASSIUM 3.4 mmol/L (3.5-5.1); SODIUM SERUM 141 mmol/L (136-145); THYROID STIMULATING HORMONE 2.67 uIU/mL (0.36-3.74); TROPONIN I < 0.04 ng/mL (0.00-0.06); UREA NITROGEN, BLOOD 12 mg/dL (7-18)
[2020-11-29] MEDS: INSULIN HUMULIN R 100 UNIT/ML 3ML SQ SCH ×4 (07:30→19:46)
[2020-11-29] MEDS: FAMOTIDINE 20MG TAB PO SCH ×2 (09:01→21:42)
[2020-11-29] MEDS: ASPIRIN 81MG CHEW TAB PO SCH (09:01)
[2020-11-29] MEDS: ENOXAPARIN SODIUM 40 MG/0.4 ML SYRINGE SQ SCH (09:03)
[2020-11-29] MEDS ORDERED: DEXTROSE 50%-WATER 50 ML DISP.SYRIN IV PRN (10:45)
[2020-11-29] MEDS ORDERED: POTASSIUM CHLORIDE 20MEQ/100ML 100 ML IV PRN ×2 (10:45)
[2020-11-29] MEDS ORDERED: MAGNESIUM 2GM PREMIX 50ML 50 ML IV PRN (10:45)
[2020-11-29] MEDS ORDERED: KCL 20 MEQ ERTAB PO PRN (10:45)
[2020-11-29] MEDS ORDERED: LIDOCAINE HCL-MPF 1% 2ML VIAL IV PRN ×2 (10:45)
[2020-11-29] MEDS ORDERED: GLUCAGON 1MG KIT 1 MG ML IM PRN (10:45)
[2020-11-29] MEDS ORDERED: POTASSIUM CHLORIDE 10% ELIXIR 20 MEQ/15 ML UDCUP PO PRN (10:45)
[2020-11-29] MEDS: SOLU-MEDROL 40MG VIAL IVP SCH (11:09)
[2020-11-29] MEDS: KETOROLAC 15MG/ML VIAL (15MG/ML) IV SCH (11:09)
[2020-11-29 12:48] LABS: CREATINE KINASE, TOTAL 97 U/L (21-232); MYOGLOBIN 37 ng/mL (10-92); TROPONIN I < 0.04 ng/mL (0.00-0.06)
[2020-11-30] VITALS (7 sets, daily range): BP systolic 124–173; BP diastolic 63–74
[2020-11-30 07:13] LABS: HEMATOCRIT 40.2 % (42-54); MEAN CORPUSCULAR HEMOGLOBIN 29.3 pg (27.0-33.0); MEAN CORPUSCULAR HGB CONC 32.8 g/dL (32.0-36.0); MEAN CORPUSCULAR VOLUME 89.3 fL (79-99); RED BLOOD CELL COUNT(AUTO) 4.5 MIL/uL (4.50-6.20); RED CELL DISTRIBUTION WIDTH 13.1 % (11.0-15.5); WHITE BLOOD COUNT (AUTO) 16.1 K/uL (4.8-10.8)
[2020-11-30] MEDS: INSULIN HUMULIN R 100 UNIT/ML 3ML SQ SCH ×4 (07:30→21:42)
[2020-11-30 07:32] LABS: CREATININE 0.8 mg/dL (0.5-1.5); CRP QUANTITATIVE 1.3 mg/L (0.00-9.0); POTASSIUM 4.2 mmol/L (3.5-5.1)
[2020-11-30] MEDS: KETOROLAC 15MG/ML VIAL (15MG/ML) IV SCH (10:11)
[2020-11-30] MEDS: SOLU-MEDROL 40MG VIAL IVP SCH (10:11)
[2020-11-30] MEDS: ASPIRIN 81MG CHEW TAB PO SCH (10:18)
[2020-11-30] MEDS: FAMOTIDINE 20MG TAB PO SCH ×2 (10:18→20:32)
[2020-11-30] MEDS: ENOXAPARIN SODIUM 40 MG/0.4 ML SYRINGE SQ SCH (10:19)
[2020-11-30] MEDS: SIMVASTATIN 20 MG TABLET PO SCH (20:32)
[2020-11-30] MEDS: LISINOPRIL 5 MG TABLET PO SCH (20:32)
[2020-11-30] MEDS: METOPROLOL TARTRATE 25 MG TAB PO SCH (20:32)
[2020-11-30] MEDS: PRAZOSIN 1 MG PO SCH (21:42)
[2020-12-01] MEDS ORDERED: MORPHINE 2 MG SYG IVP ONE (02:00)
[2020-12-01 06:14] LABS: HEMATOCRIT 39.7 % (42-54); MEAN CORPUSCULAR HGB CONC 32.7 g/dL (32.0-36.0); MEAN CORPUSCULAR VOLUME 88.4 fL (79-99); RED BLOOD CELL COUNT(AUTO) 4.49 MIL/uL (4.50-6.20); RED CELL DISTRIBUTION WIDTH 13.2 % (11.0-15.5); WHITE BLOOD COUNT (AUTO) 8.6 K/uL (4.8-10.8)
[2020-12-01] MEDS: LEVOTHYROXINE 50 MCG TABLET PO SCH (06:30)
[2020-12-01 06:33] LABS: CREATININE 0.8 mg/dL (0.5-1.5); MAGNESIUM 1.8 mg/dL (1.80-2.40); POTASSIUM 4.3 mmol/L (3.5-5.1)
[2020-12-01] MEDS: INSULIN HUMULIN R 100 UNIT/ML 3ML SQ SCH ×4 (07:30→20:42)
[2020-12-01] MEDS: KETOROLAC 15MG/ML VIAL (15MG/ML) IV SCH (07:57)
[2020-12-01] MEDS: SOLU-MEDROL 40MG VIAL IVP SCH (07:57)
[2020-12-01] MEDS: METOPROLOL TARTRATE 25 MG TAB PO SCH ×2 (09:00→20:41)
[2020-12-01] MEDS: BUSPIRONE HCL 5 MG TABLET PO SCH (09:00)
[2020-12-01] MEDS: SERTRALINE HCL 50 MG TABLET PO SCH (09:00)
[2020-12-01] MEDS: FAMOTIDINE 20MG TAB PO SCH ×2 (09:00→20:41)
[2020-12-01] MEDS: TAMSULOSIN HCL 0.4 MG CAP.ER.24H PO SCH (09:00)
[2020-12-01] MEDS: ASPIRIN 81MG CHEW TAB PO SCH (09:00)
[2020-12-01] MEDS: ENOXAPARIN SODIUM 40 MG/0.4 ML SYRINGE SQ SCH (09:26)
[2020-12-01] MEDS ORDERED: REGADENOSON 0.4 MG/5 ML PF SYG IVP SCH (11:15)
[2020-12-01 14:30] VITALS: BP 146/58
[2020-12-01 16:00] VITALS: BP 142/74
[2020-12-01 19:00] VITALS: BP 155/86
[2020-12-01] MEDS: LISINOPRIL 5 MG TABLET PO SCH (20:41)
[2020-12-01] MEDS: SIMVASTATIN 20 MG TABLET PO SCH (20:41)
[2020-12-01] MEDS: PRAZOSIN 1 MG PO SCH (20:46)
[2020-12-01 23:18] VITALS: BP 133/70
[2020-12-02] VITALS: BP 133/70
[2020-12-02 03:58] VITALS: BP 107/60
[2020-12-02 05:12] LABS: CREATININE 0.8 mg/dL (0.5-1.5); POTASSIUM 3.9 mmol/L (3.5-5.1)
[2020-12-02] MEDS: LEVOTHYROXINE 50 MCG TABLET PO SCH (05:41)
[2020-12-02] MEDS: INSULIN HUMULIN R 100 UNIT/ML 3ML SQ SCH ×2 (05:52→11:30)
[2020-12-02 07:28] VITALS: BP 115/66
[2020-12-02] MEDS: BUSPIRONE HCL 5 MG TABLET PO SCH (09:51)
[2020-12-02] MEDS: TAMSULOSIN HCL 0.4 MG CAP.ER.24H PO SCH (09:51)
[2020-12-02] MEDS: ASPIRIN 81MG CHEW TAB PO SCH (09:51)
[2020-12-02] MEDS: METOPROLOL TARTRATE 25 MG TAB PO SCH (09:52)
[2020-12-02] MEDS: ENOXAPARIN SODIUM 40 MG/0.4 ML SYRINGE SQ SCH (09:52)
[2020-12-02] MEDS: FAMOTIDINE 20MG TAB PO SCH (09:52)
[2020-12-02] MEDS: SERTRALINE HCL 50 MG TABLET PO SCH (09:52)
[2020-12-02] MEDS: SOLU-MEDROL 40MG VIAL IVP SCH (10:45)
[2020-12-02] MEDS: KETOROLAC 15MG/ML VIAL (15MG/ML) IV SCH (10:45)
[2020-12-02 11:21] VITALS: BP 120/63
[2020-12-02] MEDS ORDERED: ISOSORBIDE MONO 30MG SR TAB PO SCH (13:30)
[2020-12-03] MEDS ORDERED: ISOSORBIDE MONO 30MG SR TAB PO SCH (09:00)
== END 2020-12-02 15:40 | disposition home or self-care (01) ==
LOC: EDH 16:34 → EDHIP 20:29 → 3AH 12-01 11:28
PROVIDERS: ADMIT Internal Medicine Critical Care Medicine; ATTEND Internal Medicine Critical Care Medicine
DX: I25.110 Atherosclerotic heart disease of native coronary artery with unstable angina pectoris (principal); E11.59 Type 2 diabetes mellitus with other circulatory complications; I10 Essential (primary) hypertension; E78.5 Hyperlipidemia, unspecified; E66.9 Obesity, unspecified; E51.9 Thiamine deficiency, unspecified; M54.5 Low back pain; M47.812 Spondylosis without myelopathy or radiculopathy, cervical region; R47.01 Aphasia; E83.42 Hypomagnesemia; E03.9 Hypothyroidism, unspecified; E87.6 Hypokalemia; F19.90 Other psychoactive substance use, unspecified, uncomplicated; F32.9 Major depressive disorder, single episode, unspecified; F41.9 Anxiety disorder, unspecified; G89.29 Other chronic pain; Z79.82 Long term (current) use of aspirin; Z79.890 Hormone replacement therapy; Z82.49 Family history of ischemic heart disease and other diseases of the circulatory system; Z83.3 Family history of diabetes mellitus; Z95.1 Presence of aortocoronary bypass graft; Z95.5 Presence of coronary angioplasty implant and graft; Z79.899 Other long term (current) drug therapy
CPT/HCPCS: 36415 ×5; 70450; 71045; 72125; 78452; 80048 ×4; 80053; 80061; 80305; 82550 ×4; 82948 ×10; 83036; 83540; 83550; 83735 ×5; 83874 ×3; 83880; 84100; 84443; 84484 ×5; 85025 ×2; 85027 ×2; 85378; 85610; 85651 ×2; 86140; 86431; 86677; 87804 ×2; 93005 ×4; 93017; 96361 ×2; 96365; 96366; 96372 ×4; 96375 ×2; 99285; A9500 ×2; G0378 ×87; J0360; J1650 ×4; J1815 ×5; J1885; J2785; J2920; J3475; 96374

== ENCOUNTER 2021-01-22 06:08 | Observation (INO) | payer OTHER ==
[~2021-01-22] VITALS: Ht 170.2 cm; Wt 85.6 kg
[2021-01-22] VITALS (13 sets, daily range): BP systolic 129–166; BP diastolic 66–86
[~2021-01-22 06:08] MED LIST changes: +BUSP15TA3 PO; +HYDR-4060 PO; -ISOS30TA92 PO; -MAGN400T53 PO; +METO25TA6 PO; -METO50 PO; +NITR0.4T50 SL; -PANT40TA PO; -PRAV80TA21 PO; +SERT-439 PO; +SIMV40TA59 PO; -TICA90TA PO; -TRAZ-185 PO
[2021-01-22] MEDS ORDERED: LORA2ORA5 PO (06:33)
[2021-01-22] MEDS ORDERED: ISOS20TA85 PO (06:33)
[2021-01-22] MEDS ORDERED: ASPIRIN 325MG TAB PO ONE (07:00)
[2021-01-22] MEDS ORDERED: NITROGLYCERIN 1GM OINT 1 INCH/1GM TD ONE ×2 (07:00→08:53)
[2021-01-22] MEDS ORDERED: ASPIRIN 325MG TAB ONE (08:53)
[2021-01-22 09:30] LABS: APPEARANCE,URINE Clear (CLEAR); BILIRUBIN,URINE Negative (NEGATIVE); COLOR,URINE Yellow (YELLOW); GLUCOSE, URINE (UA) Negative (NEGATIVE); KETONES,URINE Negative (NEGATIVE); LEUKOCYTE ESTERASE ,URINE Negative (NEGATIVE); NITRATE,URINE Negative (NEGATIVE); OCCULT BLOOD,URINE Negative (NEGATIVE); PH,URINE 5.5 (5.0-8.0); PROTEIN,URINE Negative (NEGATIVE)
[2021-01-22 09:30] LABS: BASOPHILS % (AUTO) 0.9 % (0.0-5.0); EOSINOPHILS % (AUTO) 3.6 % (0.0-8.0); HEMATOCRIT 40.2 % (42-54); LYMPHOCYTES % (AUTO) 30.8 % (21.0-51.0); MEAN CORPUSCULAR HEMOGLOBIN 29.3 pg (27.0-33.0); MEAN CORPUSCULAR HGB CONC 33.3 g/dL (32.0-36.0); MEAN CORPUSCULAR VOLUME 87.8 fL (79-99); MONOCYTES % (AUTO) 8.1 % (3.0-13.0); PLATELET COUNT (AUTO) 226 K/uL (130-400); RED BLOOD CELL COUNT(AUTO) 4.58 MIL/uL (4.50-6.20); RED CELL DISTRIBUTION WIDTH 12.6 % (11.0-15.5); WHITE BLOOD COUNT (AUTO) 6.9 K/uL (4.8-10.8)
[2021-01-22 09:33] LABS: CREATININE 0.7 mg/dL (0.5-1.5); POTASSIUM 3.9 mmol/L (3.5-5.1)
[2021-01-22 09:39] LABS: ALBUMIN 3.5 g/dL (3.5-5.0); BILIRUBIN,TOTAL 0.2 mg/dL (0.2-1.0); MAGNESIUM 1.6 mg/dL (1.80-2.40); TOTAL PROTEIN, SERUM 6.9 g/dL (6.0-8.3)
[2021-01-22 09:51] LABS: B-TYPE NATRIURETIC PEPTIDE 52 pg/mL (0-100)
[2021-01-22 09:59] LABS: INR 1.01 (0.85-1.15)
[2021-01-22 10:00] LABS: PARTIAL THROMBOPLASTIN TIME 24.8 SEC (26.3-35.5)
[2021-01-22] MEDS ORDERED: MAGNESIUM 2GM PREMIX 50ML 50 ML IV PRN (11:30)
[2021-01-22] MEDS ORDERED: DEXTROSE 50%-WATER 50 ML DISP.SYRIN IV PRN (11:30)
[2021-01-22] MEDS ORDERED: POTASSIUM CHLORIDE 10% ELIXIR 20 MEQ/15 ML UDCUP PO PRN (11:30)
[2021-01-22] MEDS ORDERED: LIDOCAINE HCL-MPF 1% 2ML VIAL IV PRN ×2 (11:30)
[2021-01-22] MEDS ORDERED: POTASSIUM CHLORIDE 20MEQ/100ML 100 ML IV PRN ×2 (11:30)
[2021-01-22] MEDS ORDERED: KCL 20 MEQ ERTAB PO PRN (11:30)
[2021-01-22] MEDS: INSULIN HUMULIN R 100 UNIT/ML 3ML SQ SCH ×3 (11:30→20:27)
[2021-01-22] MEDS ORDERED: GLUCAGON 1MG KIT 1 MG ML IM PRN (11:30)
[2021-01-22 11:52] LABS: THYROID STIMULATING HORMONE 1.79 uIU/mL (0.36-3.74)
[2021-01-22 11:57] LABS: HEMOGLOBIN A1C 9.1 % (4.0-6.0)
[2021-01-22] MEDS: NITROGLYCERIN 1GM OINT 1 INCH/1GM TD SCH ×2 (12:09→20:20)
[2021-01-22] MEDS ORDERED: HEPARIN 10,000 UNIT/10ML (1,000 UNIT/ML) VIAL ONE (13:36)
[2021-01-22] MEDS ORDERED: FENTANYL CITRATE PF 50 MCG/1 ML 2ML VIAL ONE (13:36)
[2021-01-22] MEDS ORDERED: IOHEXOL 350 MG/ML 100ML INFUS..BTL IV ONE (13:36)
[2021-01-22] MEDS ORDERED: MIDAZOLAM HCL 1 MG/ML 2ML VIAL ONE (13:36)
[2021-01-22] MEDS ORDERED: IOHEXOL-350 50ML VIAL IV ONE (13:36)
[2021-01-22] MEDS ORDERED: NITROGLYCERIN 2 MG VIAL IV ONE (13:36)
[2021-01-22] MEDS ORDERED: LIDOCAINE HCL 400MG/20ML VIAL ONE (13:37)
[2021-01-22] MEDS ORDERED: HYDRALAZINE 20MG/ML VIAL ONE (14:14)
[2021-01-22] MEDS: EZETIMIBE 10 MG TAB PO SCH (15:00)
[2021-01-22] MEDS ORDERED: 0.9%NACL 1000ML 1,000 ML IV SCH (15:00)
[2021-01-22] MEDS ORDERED: EZETIMIBE 10 MG TAB PO SCH (15:00)
[2021-01-22] MEDS: RANOLAZINE 500 MG TAB.SR.12H PO SCH (20:20)
[2021-01-22] MEDS: LORAZEPAM 1 MG TABLET PO SCH (20:21)
[2021-01-22] MEDS: METOPROLOL TARTRATE 25 MG TAB PO SCH (20:21)
[2021-01-22] MEDS ORDERED: LISINOPRIL 5 MG TABLET PO SCH (21:00)
[2021-01-22] MEDS ORDERED: PRAZOSIN 1 MG PO SCH (21:00)
[2021-01-22] MEDS ORDERED: SIMVASTATIN 20 MG TABLET PO SCH (21:00)
[2021-01-23] VITALS: BP 128/63
[2021-01-23] MEDS: NITROGLYCERIN 1GM OINT 1 INCH/1GM TD SCH (03:57)
[2021-01-23 04:00] VITALS: BP 122/65
[2021-01-23] MEDS: INSULIN HUMULIN R 100 UNIT/ML 3ML SQ SCH ×2 (06:19→12:26)
[2021-01-23 08:16] VITALS: BP 136/74
[2021-01-23 08:21] LABS: HEMATOCRIT 39.8 % (42-54); MEAN CORPUSCULAR HGB CONC 32.9 g/dL (32.0-36.0); MEAN CORPUSCULAR VOLUME 88.1 fL (79-99); RED BLOOD CELL COUNT(AUTO) 4.52 MIL/uL (4.50-6.20); RED CELL DISTRIBUTION WIDTH 12.8 % (11.0-15.5); WHITE BLOOD COUNT (AUTO) 6.7 K/uL (4.8-10.8)
[2021-01-23 08:40] LABS: CREATININE 0.8 mg/dL (0.5-1.5); POTASSIUM 4.1 mmol/L (3.5-5.1)
[2021-01-23] MEDS ORDERED: TAMSULOSIN HCL 0.4 MG CAP.ER.24H PO SCH (09:00)
[2021-01-23] MEDS ORDERED: ASPIRIN 81 MG EC TAB PO SCH (09:00)
[2021-01-23] MEDS ORDERED: PANTOPRAZOLE 40 MG TAB DR PO SCH (09:00)
[2021-01-23] MEDS ORDERED: LEVOTHYROXINE 50 MCG TABLET PO SCH (09:00)
[2021-01-23] MEDS ORDERED: SERTRALINE HCL 50 MG TABLET PO SCH (09:00)
[2021-01-23] MEDS ORDERED: ISOSORBIDE MONONITRATE 20 MG TABLET PO SCH ×2 (09:00)
[2021-01-23] MEDS ORDERED: BUSPIRONE HCL 5 MG TABLET PO SCH (09:00)
[2021-01-23] MEDS ORDERED: MONTELUKAST SODIUM 10 MG TAB PO SCH (09:00)
[2021-01-23] MEDS ORDERED: ENOXAPARIN SODIUM 40 MG/0.4 ML SYRINGE SQ SCH (09:00)
[2021-01-23] MEDS: RANOLAZINE 500 MG TAB.SR.12H PO SCH (10:07)
[2021-01-23] MEDS: EZETIMIBE 10 MG TAB PO SCH (10:08)
[2021-01-23] MEDS: METOPROLOL TARTRATE 25 MG TAB PO SCH (10:09)
[2021-01-23] MEDS: LORAZEPAM 1 MG TABLET PO SCH (10:10)
[2021-01-23 11:30] VITALS: BP 127/68
[2021-01-23] MEDS ORDERED: ISOS60TA77 PO (13:48)
[2021-01-23] MEDS ORDERED: SIMV-43 PO (13:48)
[2021-01-23] MEDS ORDERED: RANO500T6 PO (13:48)
== END 2021-01-23 14:14 | disposition home or self-care (01) ==
LOC: EDH 06:08 → EDHIP 11:06 → 4DH 15:10
PROVIDERS: ADMIT Internal Medicine Pulmonary Disease; ATTEND Internal Medicine Pulmonary Disease
DX: I25.110 Atherosclerotic heart disease of native coronary artery with unstable angina pectoris (principal); Z20.822 Contact with and (suspected) exposure to COVID-19; I10 Essential (primary) hypertension; E11.9 Type 2 diabetes mellitus without complications; E03.9 Hypothyroidism, unspecified; G47.33 Obstructive sleep apnea (adult) (pediatric); F41.9 Anxiety disorder, unspecified; E66.9 Obesity, unspecified; E83.42 Hypomagnesemia; E11.65 Type 2 diabetes mellitus with hyperglycemia; E78.00 Pure hypercholesterolemia, unspecified; N40.0 Benign prostatic hyperplasia without lower urinary tract symptoms; E78.5 Hyperlipidemia, unspecified; Z68.39 Body mass index [BMI] 39.0-39.9, adult; Z95.1 Presence of aortocoronary bypass graft; Z79.899 Other long term (current) drug therapy; Z98.890 Other specified postprocedural states; Z79.84 Long term (current) use of oral hypoglycemic drugs; Z79.82 Long term (current) use of aspirin; Z79.890 Hormone replacement therapy; Z86.79 Personal history of other diseases of the circulatory system; Z95.5 Presence of coronary angioplasty implant and graft
CPT/HCPCS: 36415 ×2; 71045; 80048; 80053; 80061; 81003; 82550; 82948 ×5; 83036; 83735; 83880; 84443; 84484 ×3; 85025; 85027; 85378; 85610; 85730; 86140; 87635; 93005; 93455; 96372; 99285; C1760; C1769 ×2; C1894 ×2; C9803; G0378 ×27; J0360; J1644; J1650; J1815; J2250; J3010; J3490 ×2; Q9965; Q9967; 99156; 99157

== ENCOUNTER 2021-10-07 05:55 | Day surgery (SDC) | payer OTHER ==
[2021-10-05 10:13] LABS: BASOPHILS % (AUTO) 0.8 % (0.0-5.0); EOSINOPHILS % (AUTO) 2.8 % (0.0-8.0); HEMATOCRIT 46.5 % (42-54); LYMPHOCYTES % (AUTO) 31.1 % (21.0-51.0); MEAN CORPUSCULAR HEMOGLOBIN 28.9 pg (27.0-33.0); MEAN CORPUSCULAR HGB CONC 32.5 g/dL (32.0-36.0); MEAN CORPUSCULAR VOLUME 88.9 fL (79-99); MONOCYTES % (AUTO) 8.6 % (3.0-13.0); NEUTROPHILS % (AUTO) 56.4 % (40.0-77.0); PLATELET COUNT (AUTO) 286 K/uL (130-400); RED BLOOD CELL COUNT(AUTO) 5.23 MIL/uL (4.50-6.20); RED CELL DISTRIBUTION WIDTH 12.5 % (11.0-15.5); WHITE BLOOD COUNT (AUTO) 6.2 K/uL (4.8-10.8)
[2021-10-05 10:18] LABS: CREATININE 0.8 mg/dL (0.5-1.5)
[2021-10-05 10:22] LABS: PROTHROMBIN TIME 10.9 SEC (9.6-11.6)
[2021-10-05 10:23] LABS: PARTIAL THROMBOPLASTIN TIME 25.8 SEC (26.3-35.5)
[2021-10-05 10:29] LABS: APPEARANCE,URINE Clear (CLEAR); BILIRUBIN,URINE Negative (NEGATIVE); COLOR,URINE Dark Yellow (YELLOW); GLUCOSE, URINE (UA) >=1000 mg/dL (NEGATIVE); KETONES,URINE Trace mg/dL (NEGATIVE); LEUKOCYTE ESTERASE ,URINE Trace (NEGATIVE); NITRATE,URINE Negative (NEGATIVE); OCCULT BLOOD,URINE Negative (NEGATIVE); PROTEIN,URINE POS 1+ mg/dL (NEGATIVE)
[2021-10-05 10:38] LABS: BACTERIA,URINE Rare /HPF (None Seen); RBC,URINE 0-1 /HPF (0-1); SQUAMOUS EPITHELIAL CELL,UR Rare /HPF (0-2); WBC,URINE 0-1 /HPF (0-1)
[2021-10-05 10:48] LABS: B-TYPE NATRIURETIC PEPTIDE 10 pg/mL (0-100)
[~2021-10-07] VITALS: Ht 170.2 cm; Wt 86.6 kg
[2021-10-07] VITALS (9 sets, daily range): BP systolic 110–153; BP diastolic 60–75
[~2021-10-07 05:55] MED LIST changes: -AEC81 PO; +ASPI-1443 PO; +CETI10TA57 PO; +CLOP75TA32 PO; +ESOM20CA31 PO; +ISOS60TA77 PO; +LEVO50CA4 PO; -LEVO50TA11 PO; -LISI-809 PO; +LISI5TAB21 PO; +LORA2TAB80 PO; -METF-444 PO; +METF-446 PO; -METO25TA6 PO; +METO50TA18 PO; -MONT10TA32 PO; +MULT-1367 PO; +NPH,100V SQ; +RANO500T2 PO; +RANO500T6 PO; +SIMV-43 PO; -SIMV40TA59 PO
[2021-10-07] MEDS ORDERED: 0.9%NACL 1000ML 1,000 ML IV ONE (06:16)
[2021-10-07] MEDS ORDERED: IOHEXOL-350 50ML VIAL IV ONE (07:07)
[2021-10-07] MEDS ORDERED: NITROGLYCERIN 50MG VIAL ONE (07:07)
[2021-10-07] MEDS ORDERED: IOHEXOL 350 MG/ML 100ML INFUS..BTL IV ONE (07:07)
[2021-10-07] MEDS ORDERED: FENTANYL CITRATE PF 50 MCG/1 ML 2ML VIAL ONE (07:08)
[2021-10-07] MEDS ORDERED: MIDAZOLAM HCL 1 MG/ML 2ML VIAL ONE (07:08)
[2021-10-07] MEDS ORDERED: LIDOCAINE HCL 400MG/20ML VIAL ONE (07:08)
[2021-10-07] MEDS ORDERED: BIVALIRUDIN 250 MG/VIAL IV ONE (07:33)
[2021-10-07] MEDS ORDERED: NITROGLYCERIN 0.4 MG SL TAB SL PRN (08:30)
[2021-10-07] MEDS ORDERED: GLUCAGON 1MG KIT 1 MG ML IM PRN (08:30)
[2021-10-07] MEDS ORDERED: DEXTROSE 50%-WATER 50 ML DISP.SYRIN IV PRN (08:30)
[2021-10-07] MEDS ORDERED: METOPROLOL TARTRATE 1 MG/ML 5ML VIAL IV PRN (08:30)
[2021-10-07] MEDS ORDERED: 0.9%NACL 1000ML 1,000 ML IV SCH (08:30)
[2021-10-07] MEDS ORDERED: INSULIN HUMULIN R 100 UNIT/ML 3ML ONE (08:55)
[2021-10-07] MEDS ORDERED: INSULIN HUMULIN R 100 UNIT/ML 3ML SQ SCH (11:30)
== END 2021-10-07 13:00 | disposition home or self-care (01) ==
LOC: DAH 05:55
PROVIDERS: ATTEND Internal Medicine Cardiovascular Disease
DX: I25.110 Atherosclerotic heart disease of native coronary artery with unstable angina pectoris (principal); I10 Essential (primary) hypertension; E66.9 Obesity, unspecified; E78.5 Hyperlipidemia, unspecified; K21.9 Gastro-esophageal reflux disease without esophagitis; G47.00 Insomnia, unspecified; F41.9 Anxiety disorder, unspecified; Z82.49 Family history of ischemic heart disease and other diseases of the circulatory system; Z83.3 Family history of diabetes mellitus; Z79.4 Long term (current) use of insulin; Z79.02 Long term (current) use of antithrombotics/antiplatelets; Z79.01 Long term (current) use of anticoagulants; Z79.899 Other long term (current) drug therapy; Z98.890 Other specified postprocedural states; Z95.1 Presence of aortocoronary bypass graft; Z68.30 Body mass index [BMI] 30.0-30.9, adult
CPT/HCPCS: 36415; 71045; 80048; 81001; 82948 ×2; 83880; 85025; 85610; 85730; 93005; 93459; A4215; A4216; A4221; A4222; A4223 ×3; A4606; A4663; C1769; C1887; C1894 ×4; J1644 ×2; J1815; J2250; J3010; J3490 ×2; J7030; Q9965; Q9967 ×2; 96360; 96361; 96372; 99156; 99157; J0583

== ENCOUNTER → 2022-01-03 | Outpatient (CLI) | payer OTHER ==
[~2022-01-03] MED LIST changes: -RANO500T6 PO
[2022-01-03 12:51] LABS: ALANINE AMINOTRANSFERASE 39 U/L (12-78); ALBUMIN 3.6 g/dL (3.5-5.0); ASPARTATE AMINOTRANSFERASE 23 U/L (10-37); CARBON DIOXIDE 29 mmol/L (21-32); CHLORIDE 104 mmol/L (101-111); CHOLESTEROL 299 mg/dL (<200); GLOMERULAR FILTR. RATE CALC 82 mL/min (>60); GLUCOSE,RANDOM 131 mg/dL (70-105); HDL CHOLESTEROL 36 mg/dL (29-71); LDL DIRECT 219 mg/dL (0-99); POTASSIUM 5.2 mmol/L (3.5-5.1); SODIUM SERUM 140 mmol/L (136-145); TOTAL PROTEIN, SERUM 7.4 g/dL (6.0-8.3); TRIGLYCERIDES 282 mg/dL (30-200); UREA NITROGEN, BLOOD 13 mg/dL (7-18)
== END | disposition home or self-care (01) ==
LOC: LAB 09:36
PROVIDERS: ATTEND Internal Medicine Cardiovascular Disease
DX: E78.5 Hyperlipidemia, unspecified (principal); I25.10 Atherosclerotic heart disease of native coronary artery without angina pectoris
CPT/HCPCS: 36415; 80053; 80061

== ENCOUNTER → 2023-04-25 | Outpatient (CLI) | payer OTHER | END | disposition home or self-care (01) | LOC: RAH 10:03 | PROVIDERS: ATTEND Internal Medicine Gastroenterology | DX: R07.9 Chest pain, unspecified (principal); R11.2 Nausea with vomiting, unspecified | CPT/HCPCS: 74240 ==

== ENCOUNTER 2023-10-25 05:52 | Observation (INO) | payer OTHER ==
[2023-10-23 10:34] LABS: BASOPHILS # (AUTO) 0.06 K/uL (0.00-0.20); BASOPHILS % (AUTO) 0.7 % (0.0-5.0); EOSINOPHILS # (AUTO) 0.19 K/uL (0.00-0.70); EOSINOPHILS % (AUTO) 2.3 % (0.0-8.0); HEMATOCRIT 42.8 % (42-54); IMMATURE GRANULOCYTE ABSOLUTE 0.05 K/uL (0-1); LYMPHOCYTES # (AUTO) 1.9 K/uL (1.0-4.8); MEAN CORPUSCULAR HGB CONC 33.2 g/dL (32.0-36.0); MEAN CORPUSCULAR VOLUME 87.5 fL (79-99); MONOCYTES # (AUTO) 0.5 K/uL (0.1-1.0); MONOCYTES % (AUTO) 5.7 % (3.0-13.0); NEUTROPHILS # (AUTO) 5.8 K/uL (1.8-7.7); NEUTROPHILS % (AUTO) 68.7 % (40.0-77.0); PLATELET COUNT (AUTO) 327 K/uL (130-400); RED BLOOD CELL COUNT(AUTO) 4.89 MIL/uL (4.50-6.20); RED CELL DISTRIBUTION WIDTH 13.2 % (11.0-15.5); WHITE BLOOD COUNT (AUTO) 8.4 K/uL (4.8-10.8)
[2023-10-23 10:42] LABS: CREATININE 0.9 mg/dL (0.5-1.3)
[2023-10-23 10:51] LABS: INR 1.02 (0.85-1.15)
[2023-10-23 10:53] LABS: PARTIAL THROMBOPLASTIN TIME 27.6 SEC (26.3-35.5)
[2023-10-23 11:00] VITALS: BP 135/75; PULSE 67; RESP 18
[2023-10-25] VITALS (15 sets, daily range): BP systolic 106–161; BP diastolic 65–85; PULSE 63–86; RESP 12–22; O2SAT 98
[~2023-10-25] VITALS: Ht 170.2 cm; Wt 80.0 kg
[2023-10-25] MEDS: 0.9%NACL 1000ML 1,000 ML IV ONE (06:51)
[2023-10-25] MEDS ORDERED: HYDR-4068 PO (07:15)
[2023-10-25] MEDS ORDERED: OMEP20CA12 PO (07:15)
[2023-10-25] MEDS ORDERED: ROSU40TA21 PO (07:15)
[2023-10-25] MEDS ORDERED: EZET10TA48 PO (07:16)
[2023-10-25] MEDS ORDERED: LIDOCAINE HCL 400MG/20ML VIAL ONE (07:24)
[2023-10-25] MEDS ORDERED: FENTANYL CITRATE PF 50 MCG/1 ML 2ML VIAL ONE (07:26)
[2023-10-25] MEDS ORDERED: IOHEXOL-350 50ML VIAL IV ONE (07:26)
[2023-10-25] MEDS ORDERED: IOHEXOL 350 MG/ML 100ML INFUS..BTL IV ONE (07:26)
[2023-10-25] MEDS ORDERED: MIDAZOLAM HCL 1 MG/ML 2ML VIAL ONE ×2 (07:26→07:49)
[2023-10-25] MEDS ORDERED: HEPARIN 10,000 UNIT/10ML (1,000 UNIT/ML) VIAL ONE (07:26)
[2023-10-25] MEDS ORDERED: BIVALIRUDIN 250 MG/VIAL IV ONE (07:26)
[2023-10-25] MEDS ORDERED: NITROGLYCERIN 50MG VIAL ONE (07:29)
[2023-10-25] MEDS ORDERED: MORPHINE 4 MG SYG ONE (08:23)
[2023-10-25] MEDS ORDERED: ASPIRIN 325MG EC TAB PO ONE (08:40)
[2023-10-25] MEDS ORDERED: CLOPIDOGREL 300MG TAB ONE (08:40)
[2023-10-25] MEDS ORDERED: NITROGLYCERIN 0.4 MG SL TAB SL PRN (09:00)
[2023-10-25] MEDS ORDERED: GLUCAGON 1MG KIT 1 MG ML IM PRN ×2 (09:00→22:30)
[2023-10-25] MEDS: 0.9%NACL 1000ML 1,000 ML IV SCH (09:00)
[2023-10-25] MEDS ORDERED: ACETAMINOPHEN WITH CODEINE 1 TAB TAB PO PRN (09:00)
[2023-10-25] MEDS ORDERED: DEXTROSE 50%-WATER 50 ML DISP.SYRIN IV PRN ×2 (09:00→22:30)
[2023-10-25] MEDS: INSULIN HUMULIN R 100 UNIT/ML 3ML SQ SCH (15:22)
[2023-10-25] MEDS: ACETAMINOPHEN WITH CODEINE 1 TAB TAB PO PRN (17:20)
[2023-10-25] MEDS ORDERED: HYDROCODONE/ACETAMINOPHEN 10/325 MG TAB PO PRN (21:30)
[2023-10-25] MEDS: METOPROLOL TARTRATE 25 MG TAB PO SCH (22:09)
[2023-10-25] MEDS ORDERED: LABETALOL 20MG SYG IV PRN (22:30)
[2023-10-25] MEDS ORDERED: LACTULOSE 20 GM/30 ML UDCUP PO PRN (22:30)
[2023-10-25] MEDS ORDERED: ACETAMINOPHEN 325 MG TAB PO PRN (22:30)
[2023-10-25] MEDS ORDERED: MAGNESIUM 2GM PREMIX 50ML 50 ML IV PRN (22:30)
[2023-10-25] MEDS ORDERED: CLONIDINE HCL 0.1 MG TABLET PO PRN (22:30)
[2023-10-25] MEDS ORDERED: KAYEXALATE 15GM/60ML PO PRN (22:30)
[2023-10-25] MEDS ORDERED: ACETAMINOPHEN 650 MG SUPPOSITORY RC PRN (22:30)
[2023-10-25] MEDS ORDERED: ONDANSETRON 4MG INJ IVP PRN (22:30)
[2023-10-25] MEDS ORDERED: TEMAZEPAM 15 MG CAPSULE PO PRN (22:30)
[2023-10-25 22:52] LABS: CREATININE 1.3 mg/dL (0.5-1.3); POTASSIUM 4.6 mmol/L (3.5-5.1)
[2023-10-26 00:45] VITALS: BP 160/73; PULSE 61; RESP 18
[2023-10-26 03:45] VITALS: BP 154/71; PULSE 58; RESP 20
[2023-10-26 04:03] LABS: BASOPHILS # (AUTO) 0.08 K/uL (0.00-0.20); BASOPHILS % (AUTO) 0.9 % (0.0-5.0); EOSINOPHILS # (AUTO) 0.25 K/uL (0.00-0.70); EOSINOPHILS % (AUTO) 2.9 % (0.0-8.0); HEMATOCRIT 36.6 % (42-54); IMMATURE GRANULOCYTE ABSOLUTE 0.03 K/uL (0-1); LYMPHOCYTES # (AUTO) 2.8 K/uL (1.0-4.8); LYMPHOCYTES % (AUTO) 33.4 % (21.0-51.0); MEAN CORPUSCULAR HGB CONC 32.8 g/dL (32.0-36.0); MEAN CORPUSCULAR VOLUME 85.3 fL (79-99); MONOCYTES # (AUTO) 0.7 K/uL (0.1-1.0); MONOCYTES % (AUTO) 8.5 % (3.0-13.0); NEUTROPHILS # (AUTO) 4.6 K/uL (1.8-7.7); NEUTROPHILS % (AUTO) 53.9 % (40.0-77.0); PLATELET COUNT (AUTO) 290 K/uL (130-400); RED BLOOD CELL COUNT(AUTO) 4.29 MIL/uL (4.50-6.20); RED CELL DISTRIBUTION WIDTH 13.7 % (11.0-15.5); WHITE BLOOD COUNT (AUTO) 8.5 K/uL (4.8-10.8)
[2023-10-26 04:35] LABS: MAGNESIUM 1.6 mg/dL (1.80-2.40); POTASSIUM 4.4 mmol/L (3.5-5.1)
[2023-10-26] MEDS: INSULIN HUMULIN R 100 UNIT/ML 3ML SQ SCH (07:30)
[2023-10-26] MEDS: PANTOPRAZOLE 40 MG TAB DR PO SCH ×2 (07:30→08:59)
[2023-10-26] MEDS: LEVOTHYROXINE 50 MCG TABLET PO SCH (07:39)
[2023-10-26 08:00] VITALS: BP 150/64; PULSE 60; RESP 18
[2023-10-26] MEDS: TAMSULOSIN HCL 0.4 MG CAP.ER.24H PO SCH (08:57)
[2023-10-26] MEDS: ENOXAPARIN SODIUM 40 MG/0.4 ML SYRINGE SQ SCH (08:57)
[2023-10-26] MEDS: CLOPIDOGREL 75MG TAB PO SCH (08:57)
[2023-10-26] MEDS: RANOLAZINE 500 MG TAB.SR.12H PO SCH (08:57)
[2023-10-26] MEDS: METOPROLOL TARTRATE 50 MG TAB PO SCH (08:58)
[2023-10-26] MEDS: ASPIRIN 81 MG EC TAB PO SCH (08:58)
[2023-10-26] MEDS ORDERED: PANTOPRAZOLE 40 MG TAB DR PO SCH (09:00)
[2023-10-26 10:34] VITALS: O2SAT 98
[2023-10-26 12:00] VITALS: BP 130/62; PULSE 61; RESP 18
[2023-10-26] MEDS: INSULIN NPH 100 UNIT/ML 3ML SQ SCH (12:17)
[2023-10-26] MEDS ORDERED: RANO500T2 PO (12:27)
[2023-10-26] MEDS ORDERED: ASPI-1197 PO (12:27)
[2023-10-26] MEDS ORDERED: CETIRIZINE HCL 5 MG TABLET PO SCH (21:00)
[2023-10-26] MEDS ORDERED: EZETIMIBE 10 MG TAB PO SCH (21:00)
[2023-10-26] MEDS ORDERED: SERTRALINE HCL 50 MG TABLET PO SCH (21:00)
[2023-10-26] MEDS ORDERED: ROSUVASTATIN CALCIUM 40 MG PO SCH (21:00)
[2023-10-26] MEDS ORDERED: PRAZOSIN HCL 1 MG PO SCH (21:00)
== END 2023-10-26 13:10 | disposition home or self-care (01) ==
LOC: DAH 05:52 → DAHIP 05:53 → DAH 05:53 → 2AH 17:05
PROVIDERS: ADMIT Internal Medicine Critical Care Medicine; ATTEND Internal Medicine Critical Care Medicine
DX: I25.110 Atherosclerotic heart disease of native coronary artery with unstable angina pectoris (principal); E87.5 Hyperkalemia; I10 Essential (primary) hypertension; E11.65 Type 2 diabetes mellitus with hyperglycemia; E03.9 Hypothyroidism, unspecified; N40.0 Benign prostatic hyperplasia without lower urinary tract symptoms; E78.5 Hyperlipidemia, unspecified; G47.33 Obstructive sleep apnea (adult) (pediatric); Z79.02 Long term (current) use of antithrombotics/antiplatelets; Z79.4 Long term (current) use of insulin; Z79.82 Long term (current) use of aspirin; Z79.84 Long term (current) use of oral hypoglycemic drugs; Z79.899 Other long term (current) drug therapy; Z95.1 Presence of aortocoronary bypass graft
CPT/HCPCS: 80048 ×3; 85025 ×2; 85610; 85730; 36415 ×3; 71045; 93005; 93459; 96372 ×2; 82948 ×6; 83735; C1894 ×2; C1725; C1874 ×2; C1760; C1887; C1769; Q9965 ×2; G0378 ×15; J3010; J3490 ×2; J7030; J2250 ×2; J2270; J1644; J0583; J1815 ×4; Q9967; A4215; A4223 ×3; A4222; A4221; A4663; A4216; A4606; C9600; J1650; 99156; 99157

== ENCOUNTER → 2023-11-08 | Outpatient (CLI) | payer OTHER ==
[~2023-11-08] MED LIST changes: +ASPI-1197 PO; -ASPI-1443 PO; -BACL10TA PO; -BUSP15TA3 PO; -ESOM20CA31 PO; +EZET10TA48 PO; -HYDR-4060 PO; +HYDR-4068 PO; -ISOS60TA77 PO; -LISI5TAB21 PO; -LORA2TAB80 PO; -MULT-1367 PO; +ROSU40TA70 PO; -SIMV-43 PO
== END | disposition home or self-care (01) ==
LOC: LAB 13:01
PROVIDERS: ATTEND Internal Medicine Cardiovascular Disease
DX: R06.09 Other forms of dyspnea (principal); R07.9 Chest pain, unspecified
CPT/HCPCS: 36415; 85378

== ENCOUNTER 2024-10-10 11:57 | Emergency (ER) | payer OTHER ==
[~2024-10-10] VITALS: Ht 170.2 cm; Wt 74.8 kg
[~2024-10-10 11:57] MED LIST changes: -LEVO50CA4 PO; +LEVO50CA5 PO; -ROSU40TA70 PO; +ROSU40TA88 PO; -TAMS-1 PO; +TAMS-55 PO
--- NOTE | 2024-10-10 12:10 | ERN ---
ED Note History of Present Illness Stated Complaint: NUMBNESS/PAIN TO LT SIDE OF BODY Chief Complaint: Numbness Time Seen by MD: 12:06 Dictation: PATIENT IS A 59-YEAR-OLD MALE COMING IN TODAY WITH COMPLAINTS OF NUMBNESS AND TINGLING TO THE LEFT SIDE OF HIS BODY ONSET AT 10:00 THIS MORNING HE STATES HE WAS AT REST WITH HIS . NO CHEST PAIN NO BACK PAIN NO SOB. GAIT IS STEADY TO TRIAGE. NIH IS 0 IN TRIAGE. PATIENT STATES HE HAS A HISTORY OF HYPERTENSION CARDIAC DISEASE WITH STENTS. Allergies: Coded Allergies: atorvastatin calcium (Verified Allergy, Unknown, 04/25/14) niacin (Verified Allergy, Unknown, 04/25/14) Home Meds Active Scripts Aspirin (Aspirin) 81 Mg Tab.chew, 81 MG PO DAILY for 30 Days, #30 TAB.CHEW Prov:ALYCE PENG COMMERCIAL DESIGNER 10/26/23 Ranolazine (RANEXA) 500 Mg Tab.er.12h, 1000 MG PO BID, #5 TAB X 5 DAYS THEN STOP Prov:ALYCE PENG COMMERCIAL DESIGNER 10/26/23 Reported Medications Ezetimibe (Ezetimibe) 10 Mg Tablet, 10 MG PO HS, TAB 10/25/23 Hydrocodone/Acetaminophen (Hydrocodon-Acetaminophn 10-325) 10 Mg-325 Mg Tablet, 1 EACH PO BID PRN for PAIN, TAB 10/25/23 Rosuvastatin Calcium (Rosuvastatin Calcium) 40 Mg Tablet, 40 MG PO HS, TAB 10/25/23 Prazosin HCl (Prazosin HCl) 1 Mg Capsule, 1 MG PO HS, CAP 10/06/21 Metformin HCl (Metformin HCl) 1,000 Mg Tablet, 1000 MG PO BID, TAB 10/06/21 Levothyroxine Sodium (Levothyroxine) 50 Mcg Capsule, 50 MCG PO DAILY, CAP 10/06/21 Cetirizine HCl (Cetirizine HCl) 10 Mg Tablet, 10 MG PO DAILY, TAB 10/06/21 NPH, Human Insulin Isophane (Humulin N) 100 Unit/Ml Vial, 40 UNIT SQ NOON, VIAL 10/06/21 Sertraline HCl (Sertraline HCl) 50 Mg Tablet, 100 MG PO HS, TAB 10/06/21 Nitroglycerin (Nitroglycerin) 0.4 Mg Tab.subl, 0.4 MG SL AD, TAB.SL 4/20/22 Metoprolol Tartrate (Metoprolol Tartrate) 50 Mg Tablet, 25 MG PO BID, TAB 10/06/21 Clopidogrel Bisulfate (Clopidogrel) 75 Mg Tablet, 75 MG PO DAILY, TAB 10/06/21 Tamsulosin HCl (Flomax) 0.4 Mg Cap.er.24h, 0.4 MG PO DAILY, CAPSULE. 10/06/21 Past Medical History Past Medical History: Diabetes-Type II, High Cholesterol, Hypertension Additional Past Medical Hx: AAA REPAIR, STENT Surgical History: Other Surgical History Other: HEART STENTS, TRIPLE BYPASS, Social History: Lives with family RN Note Reviewed/Agreed w/PFSH: Yes Review of System Dictation CONSTITUTIONAL: NEGATIVE EXCEPT FOR HPI HEAD/FACE: NEGATIVE EXCEPT FOR HPI EENT: NEGATIVE EXCEPT FOR HPI RESPIRATORY: NEGATIVE EXCEPT FOR HPI GASTROINTESTINAL/ABDOMINAL: NEGATIVE EXCEPT FOR HPI GENITOURINARY: NEGATIVE EXCEPT FOR HPI MUSCULOSKELETAL: NEGATIVE EXCEPT FOR HPI INTEGUMENTARY: NEGATIVE EXCEPT FOR HPI NEUROLOGICAL/PSYCH: NEGATIVE EXCEPT FOR HPI NUMBNESS AND TINGLING TO LEFT SIDE OF BODY HEMATOLOGIC/LYMPHATIC: NEGATIVE EXCEPT FOR HPI ALL SYSTEMS NEGATIVE, EXCEPT NOTED ABOVE. 13 POINT REVIEW OF SYSTEMS ASSESSED AND ALL NEGATIVE EXCEPT FOR ABOVE. Initial Vital Sign VS Vital Signs Date Time Temp Pulse Resp B/P (MAP) Pulse Ox O2 Delivery O2 Flow Rate FiO2 10/10/24 12:05 98.1 82 20 113/61 99 Room Air 10/10/24 13:10 0 21 Physical Exam Dictation VITAL SIGNS REVIEWED GENERAL APPEARANCE: ALERT, ORIENTED X 3, NO ACUTE DISTRESS, WELL DEVELOPED, NOURISHED. 0/10 PAIN HEAD AND FACE: NON-TRAUMATIC. EYES: PERRL, PINK CONJUNCTIVAS, EYELID NO TRAUMA, ANTERIOR CHAMBER WITH ARCUS SENILIS. EARS: PINNAS INTACT AND NO SIGNS OF TRAUMA OR ERYTHEMA EAR CANALS CLEAR AND NO DISCHARGE TM NO ERYTHEMA NOSE: NO DISCHARGE, NO BLEEDING. OROPHARYNX: MOUTH NORMAL, TONGUE PINK, PHARYNX CLEAR,NO ERYTHEMA, TONSILS NO EXUDATES, NO ABSCESSES NOTED, MUCOUS MEMBRANE MOIST NECK: SUPPLE, NON-TENDER, NO THYROMEGALY, NO MASSES, NO JVD, NO BRUITS BREAST:DEFERRED CHEST:NO TENDERNESS, NO CREPITUS, NO PARADOXICAL MOVEMENT, NO RETRACTIONS LUNGS:CLEAR, WELL-VENTILATED, SYMMETRIC, NO RALES, NO WHEEZING, NO RHONCHI, NO STRIDOR, GOOD BREATH SOUNDS BILATERALLY HEART: REGULAR RATE, REGULAR RHYTHM, NO MURMUR, NO GALLOPS VASCULAR: NO PERIPHERAL EDEMA, ABDOMEN: SOFT, POSITIVE BOWEL SOUNDS, NONDISTENDED, NO GUARDING, NONTENDER, NO REBOUND, NO MASSES NO HEPATOMEGALY, NO SPLENOMEGALY, NO BAY'S SIGN, NO HERNIAS. RECTAL: DEFERRED GENITAL: DEFERRED NEUROLOGICAL: NORMAL SPEECH, MOTOR FUNCTION INTACT, SENSORY FUNCTION INTACT NIH IS 0, GAIT IS STEADY, VOICE IS CLEAR MUSCULOSKELETAL: NECK NONTENDER, FULL RANGE OF MOTION, BACK NONTENDER, FULL RANGE OF MOTION, EXTREMITIES: NONTENDER, FULL RANGE OF MOTION SKIN: COLOR PINK, DRY, NO TURGOR, NO RASH, NO LACERATIONS, NO ABRASIONS, NO CONTUSIONS. LYMPHATIC: DEFERRED Results (Laboratory/Radiology) Laboratory/Radiology Laboratory Tests Test 10/10/24 12:50 10/10/24 12:58 Urine Color YELLOW (YELLOW) Urine Appearance CLOUDY (CLEAR) H Urine pH 5.5 (5.0-8.0) Urine Specific [place] 1.020 (1.001-1.031) Urine Protein 50 mg/dL (NEGATIVE) H Urine Glucose (UA) NEGATIVE mg/dL (NEGATIVE) Urine Ketones NEGATIVE mg/dL (NEGATIVE) Urine Occult Blood NEGATIVE (NEGATIVE) Urine Nitrate NEGATIVE (NEGATIVE) Urine Bilirubin NEGATIVE mg/dL (NEGATIVE) Urine Urobilinogen 0.2 mg/dL (0.2-1.0) Urine Leukocyte Esterase NEGATIVE Yeimy/uL White Blood Count 12.9 K/uL (4.8-10.8) H Red Blood Count 4.94 MIL/uL (4.50-6.20) Hemoglobin 14.3 g/dL (14.0-18.0) Hematocrit 43.7 % (42-54) Mean Corpuscular Volume 88.5 fL (79-99) Mean Corpuscular Hemoglobin 28.9 pg (27.0-33.0) Mean Corpuscular Hemoglobin Concent 32.7 g/dL (32.0-36.0) Red Cell Distribution Width 13.7 % (11.0-15.5) Platelet Count 280 K/uL (130-400) Mean Platelet Volume 10.0 fL (7.5-10.5) Immature Granulocyte % (Auto) 0.5 % (0-1) Neutrophils (%) (Auto) 73.7 % (40.0-77.0) Lymphocytes (%) (Auto) 18.1 % (21.0-51.0) L Monocytes (%) (Auto) 6.1 % (3.0-13.0) Eosinophils (%) (Auto) 1.2 % (0.0-8.0) Basophils (%) (Auto) 0.4 % (0.0-5.0) Neutrophils # (Auto) 9.5 K/uL (1.8-7.7) H Lymphocytes # (Auto) 2.3 K/uL (1.0-4.8) Monocytes # (Auto) 0.8 K/uL (0.1-1.0) Eosinophils # (Auto) 0.16 K/uL (0.00-0.70) Basophils # (Auto) 0.05 K/uL (0.00-0.20) Absolute Immature Granulocyte (auto 0.06 K/uL (0-1) Nucleated Red Blood Cells 0.0 % (0.0-0.19) Sodium Level 140 mmol/L (136-145) Potassium Level 5.1 mmol/L (3.5-5.1) Chloride Level 103 mmol/L (101-111) Carbon Dioxide Level 28 mmol/L (21-32) Blood Urea Nitrogen 17 mg/dL (7-18) Creatinine 1.1 mg/dL (0.5-1.3) Glomerular Filtration Rate Calc 76 mL/min (>90) Random Glucose 131 mg/dL (70-105) H Total Calcium 9.4 mg/dL (8.5-10.1) Troponin I High Sensitivity < 4 ng/L (4-75) L CT HEAD/BRAIN W/O CONTRAST HISTORY: Numbness COMPARISON: None TECHNIQUE: Multiple sequential axial images of the head were obtained from the base of the skull through vertex. Patient was not given contrast through intravenous route. FINDINGS: The ventricles and extraventricular CSF spaces are dilated consistent with cerebral atrophy. Nonspecific white matter changes seen. There is no midline shift, mass effect or herniation. No acute intracranial bleed is seen. Visualized portion of the paranasal sinuses are grossly within normal limits. IMPRESSION: 1. No acute intracranial bleed is seen. Labs Reviewed?: Yes EKG: (+) NSR EKG Comment: EKG NORMAL SINUS RHYTHM/HEART RATE 80/AXIS NORMAL/NO ECTOPY ED Course ED Course Orders Procedure Category Date Status Time Ct Head/Brain W/O CT 10/10/24 Resulted Contrast 12:08 Cbc With Differential LAB 10/10/24 Complete 12:08 Troponin I High LAB 10/10/24 Complete Sensitivity 12:08 12 Lead Ekg Tracing- EKG 10/10/24 Complete Technical 12:08 Basic Metabolic Panel LAB 10/10/24 Complete 12:08 Urinalysis Profile LAB 10/10/24 In Process 13:56 Vital Signs Date Time Temp Pulse Resp B/P (MAP) Pulse Ox O2 Delivery O2 Flow Rate FiO2 10/10/24 13:10 98.2 80 16 122/50 98 Room Air* 0 21 10/10/24 12:05 98.1 82 20 113/61 99 Room Air 1450/patient remains neurologically intact NIH remains 0. Patient aware of negative findings on cardiac workup and CT. HEART Score Response (Comments) Value History: Low suspicion (0) 0 Age: 45-65yrs (+1) 1 Risk Factors: 3+ risk factors (+2) 2 Initial Troponin: Normal limit (0) 0 Total 3 Medical Decision Making MDM MDM: Differential diagnosis: CVA/paresthesias/electrolyte imbalance/dehydration/neuropathy Rationale: Tests considered and ordered secondary to shared decision making include: EKG/labs/radiology Previous outside records reviewed: Old ER visits. Risk of complication and/or morbidity or mortality of patient management: None Medications-Per medication reconciliation Need for hospitalization: Patient does not meet criteria for hospitalization. No Need for emergency major/minor surgery: No There are no social concerns with this patient. Prescription drug management none Prescriptions will include symptomatic care Patient's prior external medical records from other ER visits were reviewed by me as indicated. Prior testing and results from previous visits were reviewed. Prior tests were taken into account with medical decision making and resource utilization, independent historian/historians were used to obtain complete medical history. I independently interpreted the test that were performed, results were reviewed by me and considered findings on radiology if ordered. Medical management and examination interpretation discussions were had by me with other qualified healthcare professionals as indicated for the patient's care. DX & DISP Disposition: Discharge Departure Impression: Primary Impression: Paresthesia of left arm and leg Additional Impressions: Hyperglycemia, Dehydration Condition: Stable Additional Instructions: Follow-up with primary care provider in 1 to 2 days. Take medications as directed here in the emergency room. Okay to continue home medications unless otherwise discussed during your visit in the emergency room today. Return to your nearest emergency room if symptoms worsen or if there is no improvement. Call 911 if you need immediate assistance. Take Tylenol or Motrin [id number] as needed and if no contraindications are present. Increase or al hydration. A wound culture or urine culture was ordered here in the emergency room department please follow-up with primary care provider and advise them to get repeat ports from our facility. If you had any Emmett wrap/splints that were applied here, please do not remove them until you see your primary care or specialty. Follow up with your primary care doctor in 1-2 days. Referrals: SARY GARCIA MD (PCP) Time of Disposition: 14:50 I have reviewed the case, and I agree with, Diagnosis and Plan CATHERINE KOEHLER NP Oct 10, 2024 12:10
--- NOTE | 2024-10-10 12:18 | EKG ---
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
--- NOTE | 2024-10-10 12:52 | HMCIMG ---
CT HEAD/BRAIN W/O CONTRAST HISTORY: Numbness COMPARISON: None TECHNIQUE: Multiple sequential axial images of the head were obtained from the base of the skull through vertex. Patient was not given contrast through intravenous route. FINDINGS: The ventricles and extraventricular CSF spaces are dilated consistent with cerebral atrophy. Nonspecific white matter changes seen. There is no midline shift, mass effect or herniation. No acute intracranial bleed is seen. Visualized portion of the paranasal sinuses are grossly within normal limits. IMPRESSION: 1. No acute intracranial bleed is seen. CT was performed with one or more following dose reduction techniques: automated exposure control, adjustment of the mA and kv according to patient's size, or use of a iterative reconstruction technique.
[2024-10-10 13:13] LABS: BASOPHILS # (AUTO) 0.05 K/uL (0.00-0.20); BASOPHILS % (AUTO) 0.4 % (0.0-5.0); EOSINOPHILS # (AUTO) 0.16 K/uL (0.00-0.70); EOSINOPHILS % (AUTO) 1.2 % (0.0-8.0); HEMATOCRIT 43.7 % (42-54); IMMATURE GRANULOCYTE ABSOLUTE 0.06 K/uL (0-1); LYMPHOCYTES # (AUTO) 2.3 K/uL (1.0-4.8); LYMPHOCYTES % (AUTO) 18.1 % (21.0-51.0); MEAN CORPUSCULAR HEMOGLOBIN 28.9 pg (27.0-33.0); MEAN CORPUSCULAR HGB CONC 32.7 g/dL (32.0-36.0); MEAN CORPUSCULAR VOLUME 88.5 fL (79-99); MONOCYTES # (AUTO) 0.8 K/uL (0.1-1.0); MONOCYTES % (AUTO) 6.1 % (3.0-13.0); NEUTROPHILS # (AUTO) 9.5 K/uL (1.8-7.7); NEUTROPHILS % (AUTO) 73.7 % (40.0-77.0); PLATELET COUNT (AUTO) 280 K/uL (130-400); RED BLOOD CELL COUNT(AUTO) 4.94 MIL/uL (4.50-6.20); RED CELL DISTRIBUTION WIDTH 13.7 % (11.0-15.5); WHITE BLOOD COUNT (AUTO) 12.9 K/uL (4.8-10.8)
[2024-10-10 13:21] LABS: CREATININE 1.1 mg/dL (0.5-1.3); POTASSIUM 5.1 mmol/L (3.5-5.1)
[2024-10-10 14:35] LABS: APPEARANCE,URINE CLOUDY (CLEAR); BILIRUBIN,URINE NEGATIVE (NEGATIVE); COLOR,URINE YELLOW (YELLOW); GLUCOSE, URINE (UA) NEGATIVE (NEGATIVE); KETONES,URINE NEGATIVE (NEGATIVE); LEUKOCYTE ESTERASE ,URINE NEGATIVE Leu/uL (NEGATIVE); NITRATE,URINE NEGATIVE (NEGATIVE); OCCULT BLOOD,URINE NEGATIVE (NEGATIVE); PH,URINE 5.5 (5.0-8.0); PROTEIN,URINE 50 mg/dL (NEGATIVE); UROBILINOGEN,URINE 0.2 mg/dL (0.2-1.0)
[2024-10-10 14:41] LABS: ADD UA MICROSCOPIC YES
[2024-10-10 14:59] VITALS: BP 126/55; PULSE 76; RESP 16; TEMP 98.3; O2SAT 98
[2024-10-10 15:08] LABS: MUCUS,URINE MOD LPF (None Seen); OTHER CASTS, URINE 3 /LPF (None Seen); SQUAMOUS EPITHELIAL CELL,UR RARE /HPF (0-2)
== END 2024-10-10 15:08 | disposition home or self-care (01) ==
LOC: EDH 11:57
DX: R20.0 Anesthesia of skin (principal); E11.65 Type 2 diabetes mellitus with hyperglycemia; E86.0 Dehydration; E78.00 Pure hypercholesterolemia, unspecified; I10 Essential (primary) hypertension; Z79.02 Long term (current) use of antithrombotics/antiplatelets; Z79.82 Long term (current) use of aspirin; Z79.84 Long term (current) use of oral hypoglycemic drugs; Z79.890 Hormone replacement therapy; Z79.899 Other long term (current) drug therapy; Z95.5 Presence of coronary angioplasty implant and graft
CPT/HCPCS: 36415; 70450; 80048; 81001; 84484; 85025; 87086; 93005; 99284

== ENCOUNTER 2024-10-18 11:33 | Emergency (ER) | payer OTHER ==
[~2024-10-18] VITALS: Ht 170.2 cm; Wt 74.8 kg
--- NOTE | 2024-10-18 11:42 | ERN ---
General Chief Complaint: Blurred/Double Vision Stated Complaint: BLURRED VISION Time Seen by MD: 11:35 Source: patient History of Present Illness Initial Comments IN HIS IS A 59-YEAR-OLD MALE COMING IN DUE TO NEAR-SYNCOPE PRESENTATION EARLIER TODAY. STATES HE WAS AMBULATING IN HIS STORE WHEN HE FELL TWICE IN HIS PASSING OUT SHORTLY AFTER THAT HE STATES HE TOOK A SUBLINGUAL NITRO WHICH HAS BEEN TO HAS BEEN VISION. HE HAS BEEN FEELING IN HIS SIMILAR EPISODES FOR FOUR YEARS HAS BEEN EVALUATED BY PCP RECIEVED A CT OF THE CHEST WAS NOT TOLD WHAT THE FINDINGS WERE. Allergies: Coded Allergies: atorvastatin calcium (Verified Allergy, Unknown, 04/25/14) niacin (Verified Allergy, Unknown, 04/25/14) Home Meds Active Scripts Aspirin (Aspirin) 81 Mg Tab.chew, 81 MG PO DAILY for 30 Days, #30 TAB.CHEW Prov:ALYCE PENG LANDMAN 10/26/23 Ranolazine (RANEXA) 500 Mg Tab.er.12h, 1000 MG PO BID, #5 TAB X 5 DAYS THEN STOP Prov:ALYCE PENG LANDMAN 10/26/23 Reported Medications Ezetimibe (Ezetimibe) 10 Mg Tablet, 10 MG PO HS, TAB 10/25/23 Hydrocodone/Acetaminophen (Hydrocodon-Acetaminophn 10-325) 10 Mg-325 Mg Tablet, 1 EACH PO BID PRN for PAIN, TAB 10/25/23 Rosuvastatin Calcium (Rosuvastatin Calcium) 40 Mg Tablet, 40 MG PO HS, TAB 10/25/23 Prazosin HCl (Prazosin HCl) 1 Mg Capsule, 1 MG PO HS, CAP 10/06/21 Metformin HCl (Metformin HCl) 1,000 Mg Tablet, 1000 MG PO BID, TAB 10/06/21 Levothyroxine Sodium (Levothyroxine) 50 Mcg Capsule, 50 MCG PO DAILY, CAP 10/06/21 Cetirizine HCl (Cetirizine HCl) 10 Mg Tablet, 10 MG PO DAILY, TAB 10/06/21 NPH, Human Insulin Isophane (Humulin N) 100 Unit/Ml Vial, 40 UNIT SQ NOON, VIAL 10/06/21 Sertraline HCl (Sertraline HCl) 50 Mg Tablet, 100 MG PO HS, TAB 10/06/21 Nitroglycerin (Nitroglycerin) 0.4 Mg Tab.subl, 0.4 MG SL AD, TAB.SL 10/06/21 Metoprolol Tartrate (Metoprolol Tartrate) 50 Mg Tablet, 25 MG PO BID, TAB 10/06/21 Clopidogrel Bisulfate (Clopidogrel) 75 Mg Tablet, 75 MG PO DAILY, TAB 10/06/21 Tamsulosin HCl (Flomax) 0.4 Mg Cap.er.24h, 0.4 MG PO DAILY, CAPSULE. 10/06/21 Past Medical History Past Medical History: Diabetes-Type II, High Cholesterol, Hypertension Medical History Other: AAA REPAIR, STENT Past Surgical History: Other Surgical History Other: HEART STENTS, TRIPLE BYPASS, Social History Social History: Lives with family ROS Dictation CONSTITUTIONAL: NO CHILLS, NO FEVER, NO WEAKNESS, NO DIAPHORESIS, NO MALAISE. HEAD/FACE: NO SIGNS OF TRAUMA. EENT: NO EYE PAIN, NO BLURRED VISION, NO TEARING, NO DOUBLE VISION, NO EAR PAIN, NO EAR DISCHARGE, NO NOSE PAIN, NO NASAL CONGESTION, NO THROAT PAIN, NO THROAT SWELLING, NO MOUTH PAIN. RESPIRATORY: NO COUGH, NO ORTHOPNEA, NO SOB, NO STRIDOR, NO WHEEZING. CARDIOVASCULAR: NO CHEST PAIN, NO EDEMA, NO PALPITATIONS, NO SYNCOPE. GASTROINTESTINAL/ABDOMINAL: NO ABDOMINAL PAIN, NO CONSTIPATION, NO DIARRHEA, NO NAUSEA, NO VOMITING. GENITOURINARY: NO ABNORMAL DISCHARGE, NO DYSURIA, NO FREQUENT URINATION, NO HEMATURIA. NO COMPLAINTS OF PAIN IN THE GENITALS. MUSCULOSKELETAL: NO BACK PAIN, NO GOUT, NO JOINT PAIN, NO JOINT SWELLING, NO MUSCLE PAIN, NO MUSCLE STIFFNESS, NO NECK PAIN. INTEGUMENTARY: NO CHANGE IN COLOR, NO CHANGE IN HAIR/NAILS, NO DRYNESS, NO LESION, NO LUMPS, NO RASH. NEUROLOGICAL/PSYCH: NO ANXIETY, NOT DEPRESSED, NO EMOTIONAL PROBLEM, NO HEADACHE, NO NUMBNESS, NO PRE-EXISTING DEFICIT, NO HISTORY OF SEIZURES, NO TREMORS, NO WEAKNESS. HEMATOLOGIC/LYMPHATIC: NOT ANEMIC, NO HISTORY OF BLOOD CLOTS, NO APPARENT BLEEDING, NO BRUISING, GLANDS NOT SWOLLEN. ALL SYSTEMS NEGATIVE, EXCEPT NOTED. Physical Exam Physical Exam Dictation VITAL SIGNS: REVIEWED. GENERAL APPEARANCE: ALERT, ORIENTED X3, NO ACUTE DISTRESS, OBESE. HEAD AND FACE: NON-TRAUMATIC. EYES: PERRL, PINK CONJUNCTIVAS, EYELID NO TRAUMA, ANTERIOR CHAMBER CLEAR. EARS: PINNAS INTACT AND NO SIGNS OF TRAUMA OR ERYTHEMA. EAR CANALS CLEAR AND NO DISCHARGE. TMS NO ERYTHEMA. NOSE: NO DISCHARGE, NO BLEEDING. OROPHARYNX: MOUTH NORMAL, TEETH NO CARIES, TONGUE PINK. PHARYNX CLEAR, NO ERYTHEMA. TONSILS NO EXUDATES, NO ABSCESSES NOTED. MUCOUS MEMBRANE MOIST. NECK: SUPPLE, NON-TENDER, NO THYROMEGALY, NO MASSES, NO JVD, NO BRUITS. BREAST: DEFERRED. CHEST: NO TENDERNESS, NO CREPITUS, NO PARADOXICAL MOVEMENT, NO RETRACTIONS. LUNGS: CLEAR, WELL-VENTILATED, SYMMETRIC, NO RALES, NO WHEEZING, NO RHONCHI, NO STRIDOR, GOOD BREATH SOUNDS BILATERALLY. HEART: REGULAR RATE, REGULAR RHYTHM, NO MURMUR, NO GALLOPS. VASCULAR: NO PERIPHERAL EDEMA. ABDOMEN: SOFT, POSITIVE BOWEL SOUNDS, NONDISTENDED, NO GUARDING, NONTENDER, NO REBOUND, NO MASSES NO HEPATOMEGALY, NO SPLENOMEGALY, NO BAY'S SIGN, NO HERNIAS. RECTAL: DEFERRED. GENITAL: DEFERRED. NEUROLOGICAL: NORMAL SPEECH, GROSS MOTOR FUNCTION INTACT, GROSS SENSORY FUNCTION INTACT. MUSCULOSKELETAL: NECK NONTENDER, FULL RANGE OF MOTION, BACK NONTENDER, FULL RANGE OF MOTION. EXTREMITIES: NONTENDER, FULL RANGE OF MOTION. SKIN: COLOR PINK, DRY, NO TURGOR, NO RASH, NO LACERATIONS, NO ABRASIONS, NO CONTUSIONS. LYMPHATICS: DEFERRED. Results Laboratory and Microbiology Lab and Micro Result Laboratory Tests Test 10/18/24 12:00 10/18/24 12:35 White Blood Count 5.2 K/uL (4.8-10.8) Red Blood Count 4.56 MIL/uL (4.50-6.20) Hemoglobin 13.2 g/dL (14.0-18.0) L Hematocrit 40.0 % (42-54) L Mean Corpuscular Volume 87.7 fL (79-99) Mean Corpuscular Hemoglobin 28.9 pg (27.0-33.0) Mean Corpuscular Hemoglobin Concent 33.0 g/dL (32.0-36.0) Red Cell Distribution Width 13.7 % (11.0-15.5) Platelet Count 284 K/uL (130-400) Mean Platelet Volume 10.6 fL (7.5-10.5) H Immature Granulocyte % (Auto) 0.4 % (0-1) Neutrophils (%) (Auto) 67.8 % (40.0-77.0) Lymphocytes (%) (Auto) 24.9 % (21.0-51.0) Monocytes (%) (Auto) 4.6 % (3.0-13.0) Eosinophils (%) (Auto) 1.3 % (0.0-8.0) Basophils (%) (Auto) 1.0 % (0.0-5.0) Neutrophils # (Auto) 3.6 K/uL (1.8-7.7) Lymphocytes # (Auto) 1.3 K/uL (1.0-4.8) Monocytes # (Auto) 0.2 K/uL (0.1-1.0) Eosinophils # (Auto) 0.07 K/uL (0.00-0.70) Basophils # (Auto) 0.05 K/uL (0.00-0.20) Absolute Immature Granulocyte (auto 0.02 K/uL (0-1) Nucleated Red Blood Cells 0.0 % (0.0-0.19) Prothrombin Time 11.2 SEC (9.6-11.6) Prothromb Time International Ratio 1.06 (0.85-1.15) Activated Partial Thromboplast Time 23.3 SEC (26.3-35.5) L Sodium Level 137 mmol/L (136-145) Potassium Level 4.9 mmol/L (3.5-5.1) Chloride Level 101 mmol/L (101-111) Carbon Dioxide Level 30 mmol/L (21-32) Blood Urea Nitrogen 13 mg/dL (7-18) Creatinine 1.4 mg/dL (0.5-1.3) H Glomerular Filtration Rate Calc 57 mL/min (>90) Random Glucose 265 mg/dL (70-105) H Total Calcium 9.0 mg/dL (8.5-10.1) Magnesium Level 1.80 mg/dL (1.80-2.40) Total Creatine Kinase 125 U/L (21-232) Troponin I High Sensitivity 5 ng/L (4-75) B-Type Natriuretic Peptide 75 pg/mL (0-100) Urine Color YELLOW (YELLOW) Urine Appearance CLOUDY (CLEAR) H Urine pH 7.0 (5.0-8.0) Urine Specific [place] 1.020 (1.001-1.031) Urine Protein 70 mg/dL (NEGATIVE) H Urine Glucose (UA) TRACE mg/dL (NEGATIVE) H Urine Ketones NEGATIVE mg/dL (NEGATIVE) Urine Occult Blood NEGATIVE (NEGATIVE) Urine Nitrate NEGATIVE (NEGATIVE) Urine Bilirubin NEGATIVE mg/dL (NEGATIVE) Urine Urobilinogen 2.0 mg/dL (0.2-1.0) H Urine Leukocyte Esterase NEGATIVE Yeimy/uL Urine RBC 2-5 /HPF (0-1) H Urine WBC 2-5 /HPF (0-1) H Urine Squamous Epithelial Cells FEW /HPF (0-2) Urine Bacteria FEW /HPF (None Seen) Urine Hyaline Casts 2-5 /LPF (0-1 /LPF) H Urine Other Casts 4 /LPF (None Seen) Urine Opiates Screen NEGATIVE (NEGATIVE) Urine Barbiturates Screen NEGATIVE (NEGATIVE) Urine Phencyclidine Screen NEGATIVE (NEGATIVE) Urine Amphetamines Screen NEGATIVE (NEGATIVE) Urine Benzodiazepines Screen POSITIVE (NEGATIVE) H Urine Cocaine Screen NEGATIVE (NEGATIVE) Urine Marijuana (THC) Screen NEGATIVE (NEGATIVE) Labs Reviewed?: Yes EKG/XRAY/US/CT/MRI EKG Comment 10/18/2024 TIME 11:44 A.M. VENTRICULAR RATE 79 SINUS RHYTHM SC [address] WAVE ELEVATION OR DEPRESSION X-RAY Comment [address] [id number] IMAGING REPORT Signed PATIENT: JOSHUA PORTILLO MR#: [id number] : 1965 SEX: M AGE: 59 LOCATION: [facility] ORDER 1140 STATUS: [facility] REPORT#: [id number] SERVICE 1138 REASON: CP ORDERING PHYSICIAN: TERESITA REBOLLEDO MD PROCEDURE: CXR1VW - CHEST 1VW CHEST 1VW HISTORY: Chest wall pain COMPARISON: None FINDINGS: A frontal projection of the chest was obtained. No acute pulmonary infiltrates is seen. Poststernotomy changes are seen. The heart is enlarged. Degenerative changes of the thoracolumbar spine are present. No evidence of aortic calcification is seen. IMPRESSION: 1. No acute pulmonary infiltrate is seen. DICTATED BY: MARC KIRBY MD DATE: 10/18/24 1223 ELECTRONICALLY SIGNED BY: MARC KIRBY MD DATE: 10/18/[address] Scan Comment [place] [address] [place] [id number] IMAGING REPORT Signed PATIENT: JOSHUA PORTILLO MR#: [id number] : 1965 SEX: M AGE: 59 LOCATION: [facility] ORDER 1140 STATUS: [facility] REPORT#: [id number] SERVICE 1138 REASON: VERTIGO ORDERING PHYSICIAN: TERESITA REBOLLEDO MD PROCEDURE: HEAD WO - CT HEAD/BRAIN W/O CONTRAST CT HEAD/BRAIN W/O CONTRAST HISTORY: Vertigo COMPARISON: None TECHNIQUE: Multiple sequential axial images of the head were obtained from the base of the skull through vertex. Patient was not given contrast through intravenous route. FINDINGS: The ventricles and extraventricular CSF spaces are dilated consistent with cerebral atrophy. Nonspecific white matter changes seen. There is no midline shift, mass effect or herniation. No acute intracranial bleed is seen. Visualized portion of the paranasal sinuses are grossly within normal limits. IMPRESSION: 1. No acute intracranial bleed is seen. 2. Atrophy with white matter changes. CT was performed with one or more following dose reduction techniques: automated exposure control, adjustment of the mA and kv according to patient's size, or use of a iterative reconstruction technique. DICTATED BY: MARC KIRBY MD DATE: 10/18/24 1315 ELECTRONICALLY SIGNED BY: MARC KIRBY MD DATE: 10/18/24 1318 [facility] MDM: DIFFERENTIAL DIAGNOSIS: DEHYDRATION, CHRONIC VERTIGO, RATIONALE: TESTS CONSIDERED AND ORDERED SECONDARY TO SHARED DECISION MAKING INCLUDE: PREVIOUS OUTSIDE RECORDS REVIEWED: OLD ER VISITS. RISK OF COMPLICATION AND/OR MORBIDITY OR MORTALITY OF PATIENT MANAGEMENT: NONE IS A 67-YEAR-OLD GENTLEMAN COMING IN TO BE EVALUATED FOR PATIENT IS A STATES HAS BEEN HAS A MEDICAL four years. Has been evaluated by PC in his pending another evaluation. Today he came in laboratory workup including CT of the head negative for acute findings patient was hydrated with IV fluids he was he was much better. ED Course Orders Procedure Category Date Status Time Cbc With Differential LAB 10/18/24 Complete 11:38 Prothrombin Time With LAB 10/18/24 Complete INR 11:38 B-Type Natriuretic LAB 10/18/24 Complete Peptide 11:38 Chest 1vw RAD 10/18/24 Resulted 11:38 12 Lead Ekg Tracing- EKG 10/18/24 Complete Technical 11:38 Lactated Ringers PHA 10/18/24 Complete 1000ml (Lactated 12:00 Magnesium LAB 10/18/24 Complete 11:38 Creatine Kinase, Total LAB 10/18/24 Complete 11:38 Troponin I High LAB 10/18/24 Complete Sensitivity 11:38 Urinalysis Profile LAB 10/18/24 Complete 11:38 Partial LAB 10/18/24 Complete Thromboplastin Time 11:38 Basic Metabolic Panel LAB 10/18/24 Complete 11:38 Ct Head/Brain W/O CT 10/18/24 Resulted Contrast 11:38 Drug Screen Urine LAB 10/18/24 Complete 11:38 Current Medications Medications (Trade) Dose Ordered Sig/Veronica Route PRN Reason Start Time Stop Time Status Last Admin Dose Admin Lactated Ringer's 1,000 ml @ 0 mls/hr ONCE ONCE IV 10/18/24 12:00 10/18/24 12:01 DC 10/18/24 12:06 Vital Signs Date Time Temp Pulse Resp B/P (MAP) Pulse Ox O2 Delivery O2 Flow Rate FiO2 10/18/24 12:01 98.6 83 16 91/54 99 Room Air* 0 21 10/18/24 11:34 97.9 91 18 94/60 97 Room Air DX & DISP Disposition: Discharge Departure Impression: Primary Impression: Dehydration Additional Impression: Chronic vertigo Condition: Stable Additional Instructions: FOLLOW-UP WITH PRIMARY CARE PROVIDER IN 1 TO 2 DAYS. TAKE MEDICATIONS DIRECTED HERE IN THE EMERGENCY ROOM. OKAY TO CONTINUE HOME MEDICATIONS UNLESS OTHERWISE DISCUSSED DURING YOUR VISIT IN THE EMERGENCY ROOM TODAY. RETURN TO YOUR NEAREST EMERGENCY ROOM IF SYMPTOMS WORSEN OR IF THERE IS NO IMPROVEMENT. CALL 911 IF YOU NEED IMMEDIATE ASSISTANCE. TAKE TYLENOL [id number] NEEDED AND IF NO CONTRAINDICATIONS ARE PRESENT. INCREASE ORAL HYDRATION. A WOUND CULTURE OR URINE CULTURE WAS ORDERED HERE IN THE EMERGENCY ROOM DEPARTMENT PLEASE FOLLOW-UP WITH PRIMARY CARE PROVIDER AND ADVISE THEM TO GET REPEAT PORTS FROM OUR FACILITY. IF YOU HAD ANY EDDIE WRAP/SPLINTS THAT WERE APPLIED HERE, PLEASE DO NOT REMOVE THEM UNTIL YOU SEE YOUR PRIMARY CARE OR SPECIALTY. Referrals: Referrals: SARY GARCIA MD (PCP) Time of Disposition: 13:39 TERESITA REBOLLEDO MD October 18, 2024 11:42
[2024-10-18] MEDS: LACTATED RINGERS 1000ML 1,000 ML IV ONE (12:06)
[2024-10-18 12:15] LABS: BASOPHILS # (AUTO) 0.05 K/uL (0.00-0.20); EOSINOPHILS # (AUTO) 0.07 K/uL (0.00-0.70); EOSINOPHILS % (AUTO) 1.3 % (0.0-8.0); IMMATURE GRANULOCYTE ABSOLUTE 0.02 K/uL (0-1); LYMPHOCYTES # (AUTO) 1.3 K/uL (1.0-4.8); LYMPHOCYTES % (AUTO) 24.9 % (21.0-51.0); MEAN CORPUSCULAR HEMOGLOBIN 28.9 pg (27.0-33.0); MEAN CORPUSCULAR VOLUME 87.7 fL (79-99); MONOCYTES # (AUTO) 0.2 K/uL (0.1-1.0); MONOCYTES % (AUTO) 4.6 % (3.0-13.0); NEUTROPHILS # (AUTO) 3.6 K/uL (1.8-7.7); NEUTROPHILS % (AUTO) 67.8 % (40.0-77.0); PLATELET COUNT (AUTO) 284 K/uL (130-400); RED BLOOD CELL COUNT(AUTO) 4.56 MIL/uL (4.50-6.20); RED CELL DISTRIBUTION WIDTH 13.7 % (11.0-15.5); WHITE BLOOD COUNT (AUTO) 5.2 K/uL (4.8-10.8)
[2024-10-18 12:25] LABS: INR 1.06 (0.85-1.15); PROTHROMBIN TIME 11.2 SEC (9.6-11.6)
[2024-10-18 12:26] LABS: PARTIAL THROMBOPLASTIN TIME 23.3 SEC (26.3-35.5)
--- NOTE | 2024-10-18 12:26 | HMCIMG ---
CHEST 1VW HISTORY: Chest wall pain COMPARISON: None FINDINGS: A frontal projection of the chest was obtained. No acute pulmonary infiltrates is seen. Poststernotomy changes are seen. The heart is enlarged. Degenerative changes of the thoracolumbar spine are present. No evidence of aortic calcification is seen. IMPRESSION: 1. No acute pulmonary infiltrate is seen.
[2024-10-18 12:29] LABS: CREATININE 1.4 mg/dL (0.5-1.3); MAGNESIUM 1.8 mg/dL (1.80-2.40); POTASSIUM 4.9 mmol/L (3.5-5.1)
[2024-10-18 12:35] LABS: B-TYPE NATRIURETIC PEPTIDE 75 pg/mL (0-100)
[2024-10-18 13:04] LABS: APPEARANCE,URINE CLOUDY (CLEAR); BILIRUBIN,URINE NEGATIVE (NEGATIVE); COLOR,URINE YELLOW (YELLOW); GLUCOSE, URINE (UA) TRACE mg/dL (NEGATIVE); KETONES,URINE NEGATIVE (NEGATIVE); LEUKOCYTE ESTERASE ,URINE NEGATIVE Leu/uL (NEGATIVE); NITRATE,URINE NEGATIVE (NEGATIVE); OCCULT BLOOD,URINE NEGATIVE (NEGATIVE); PROTEIN,URINE 70 mg/dL (NEGATIVE)
[2024-10-18 13:09] LABS: ADD UA MICROSCOPIC YES; AMPHET/METH SCREEN,URINE NEGATIVE (NEGATIVE); BARBITURATE SCREEN, URINE NEGATIVE (NEGATIVE); BENZODIAZEPINES SCREEN,URINE POSITIVE (NEGATIVE); CANNABINOID SCREEN,URINE NEGATIVE (NEGATIVE); COCAINE SCREEN,URINE NEGATIVE (NEGATIVE); OPIATE SCREEN,URINE NEGATIVE (NEGATIVE); PHENCYCLIDINE SCREEN,URINE NEGATIVE (NEGATIVE)
[2024-10-18 13:12] LABS: BACTERIA,URINE FEW /HPF (None Seen); MUCUS,URINE RARE LPF (None Seen); OTHER CASTS, URINE 4 /LPF (None Seen); SQUAMOUS EPITHELIAL CELL,UR FEW /HPF (0-2)
--- NOTE | 2024-10-18 13:15 | EKG ---
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
--- NOTE | 2024-10-18 13:18 | HMCIMG ---
CT HEAD/BRAIN W/O CONTRAST HISTORY: Vertigo COMPARISON: None TECHNIQUE: Multiple sequential axial images of the head were obtained from the base of the skull through vertex. Patient was not given contrast through intravenous route. FINDINGS: The ventricles and extraventricular CSF spaces are dilated consistent with cerebral atrophy. Nonspecific white matter changes seen. There is no midline shift, mass effect or herniation. No acute intracranial bleed is seen. Visualized portion of the paranasal sinuses are grossly within normal limits. IMPRESSION: 1. No acute intracranial bleed is seen. 2. Atrophy with white matter changes. CT was performed with one or more following dose reduction techniques: automated exposure control, adjustment of the mA and kv according to patient's size, or use of a iterative reconstruction technique.
[2024-10-18 13:42] VITALS: BP 111/68; PULSE 78; RESP 14; TEMP 97.8; O2SAT 98
--- NOTE | 2024-10-18 13:51 | NUR ---
PT AAOX4 STABLE NO DISTRESS, VITALS WNL NO C/O PAIN, STATES HE FEELS A LITTLE BETTER NOW, NO NEW MEDICATIONS FOR NOW, IV WAS REMOVED CATHETER INTACT, PT DRIVEN HOME BY .
== END 2024-10-18 13:54 | disposition home or self-care (01) ==
LOC: EDH 11:33
DX: E86.0 Dehydration (principal); R42 Dizziness and giddiness; E11.9 Type 2 diabetes mellitus without complications; E78.00 Pure hypercholesterolemia, unspecified; I10 Essential (primary) hypertension; Z79.02 Long term (current) use of antithrombotics/antiplatelets; Z79.82 Long term (current) use of aspirin; Z79.84 Long term (current) use of oral hypoglycemic drugs; Z79.890 Hormone replacement therapy; Z79.899 Other long term (current) drug therapy; Z95.5 Presence of coronary angioplasty implant and graft
CPT/HCPCS: 99285; 96360; 70450; 71045; 96361; 82550; 83735; 84484; 80048; 83880; 80305; 85025; 85610; 85730; 81001; 36415; 93005; J7120